=== PATIENT | male | born 1980 | race Caucasian/White ===

== ENCOUNTER 2016-03-16 16:58 | Inpatient (IN) | payer OTHER ==
[2016-03-16] MEDS ORDERED: IOPAMIDOL 300 (61%) 150 ML VIAL IV ONE (16:59)
[2016-03-16] MEDS ORDERED: SODIUM CHLORIDE 0.9% 2,000 ML ONE ×2 (18:46→20:44)
[2016-03-16] MEDS ORDERED: SODIUM CHLORIDE 0.9% 50 ML IV ONE (18:46)
[2016-03-16] MEDS ORDERED: ONDANSETRON 4 MG/2ML 2 ML VIAL ONE ×3 (18:46→21:14)
[2016-03-16] MEDS ORDERED: HYDROMORPHONE HCL 1 MG/ML SYRINGE ONE (18:47)
[2016-03-16] MEDS ORDERED: CEFTRIAXONE SODIUM 1 G VIAL ONE (18:47)
[2016-03-16] MEDS ORDERED: VANCOMYCIN HCL 2.5 G in SODIUM CHLORIDE 0.9% 500 ML IV ONE (19:00)
[2016-03-16 19:35] LABS: ABSOLUTE NEUTROPHIL COUNT 12.9 K/mm3 (1.8-7.7); BASO % 0.2 % (0.2-1.0); EOS % 0.1 % (0.9-2.9); HEMATOCRIT 43.6 % (32.0-52.0); HEMOGLOBIN 14.7 gm/l (14.0-18.0); IMM NEUT # 0.1 K/mm3 (0-0.2); IMM NEUT% 0.8 % (0-1); LYMPH # 1.7 (1.0-4.8); LYMPH % 10.4 % (15-45); MEAN CELL VOLUME 86.7 fl (80.0-94.0); MEAN CORPUSCULAR HEMOGLOBIN 29.2 pg (27.0-31.0); MEAN CORPUSCULAR HGB CONC 33.7 g/dl (33.0-37.0); MEAN PLATELET VOLUME 10.9 fl (7.4-10.4); MONO # 1.6 (0.0-0.8); MONO % 9.9 % (4-12); NEUT % 78.6 % (43-75); PLATELET COUNT 282 K/mm3 (130-400); RED CELL DISTRIBUTION WIDTH 12.8 % (11.5-14.5)
[2016-03-16 19:42] LABS: I-STAT CREATININE 0.6 mg/dL (0.6-1.3)
[2016-03-16 20:10] LABS: INR 1.09; PROTHROMBIN TIME 11.6 SECONDS (9.3-11.4)
--- NOTE | 2016-03-16 20:13 | CT ---
EXAMINATION: Contrast enhanced CT scan of the abdomen and pelvis. CLINICAL INDICATION: Scrotal abscess. COMPARISON: None TECHNIQUE: Oral contrast: None Following uneventful administration of 125 mL of Isovue 300, intravenously axial images were acquired from just above the domes of the diaphragm to the iliac crest. A CT scan of the pelvis was also obtained from the iliac crest to the initial tuberosities. Stacked axial, sagittal, and coronal images were reviewed. Findings: Abdomen CT: (Contrast-enhanced): The lung bases are clear and are without mass or pleural effusion. Liver exhibits diminished attenuation throughout compatible with fatty infiltration. There is also moderate focal diminished attenuation near the gallbladder fossa. No other discrete hepatic lesion is identified. Patient status post cholecystectomy. There is no evidence of biliary obstruction. The spleen size and attenuation are within normal limits. The pancreas is normal in size and contours. No inflammatory stranding is identified. The pancreatic duct is unremarkable. The adrenals are unremarkable. The kidneys are without mass or hydronephrosis. No nephrolithiasis is identified. The abdominal aorta unremarkable. There is no retroperitoneal adenopathy identified. The stomach is unremarkable. The visualized segments of small and large bowel are within normal limits. The osseous structures exhibit no displaced fracture. No lytic or blastic lesions are identified. Pelvic CT: (Contrast -enhanced): There is a right scrotal abscess. This extends the deep and at the cephalad aspect of the scrotum. There is extensive soft tissue gas in this distribution as well with moderate adjacent inflammatory stranding. T small focus of high attenuation noted deep and inferior. To do this region. This is uncertain if this reflects packing or bandage material. There is considerable swelling of the scrotal skin predominantly on the right. The testicle itself exhibits grossly unremarkable changes however the epididymis is exhibiting moderate enhancement into the right inguinal canal. The left inguinal distribution is unremarkable. The bladder contours are within normal limits. The distal ureters are normal. The prostate is not enlarged. Seminal vesicles are symmetric. There is no free fluid. There are lymph nodes in the distal external iliac distribution which exhibits short axis dimensions of greater than 1 cm. No disseminated adenopathy is identified however. The visualized segments of small and large bowel are within normal limits. The appendix is normal. No displaced fractures are identified. There are no gross osteolytic or blastic lesions. The remainder of the overlying soft tissues are within normal limits. IMPRESSION: 1. There is a right scrotal abscess with extensive soft tissue gas and considerable scrotal edema. There is also apparent epididymitis. Although this gas may reflect postsurgical changes, a gas producing infection may need to be considered. There is also apparent residual packing noted within the abscess cavity. Reactive lymph nodes are noted within the pelvis. 2. Fatty infiltration of the liver. 3. Low-attenuation changes near the gallbladder fossa which may reflect focal geographic fatty infiltration however a hemangioma may need to be considered. If warranted, hepatic ultrasound may be helpful. 4. Prior cholecystectomy. 5. Findings were discussed with Dr. Reece at 8:00 PM 03/16/2016
[2016-03-16 20:36] LABS: VENOUS BLOOD GAS BASE EXCESS -17.1 mmol/L (-2.0-2.0); VENOUS BLOOD GAS HCO3 9.1 mmol/L (22.0-27.0)
[2016-03-16] MEDS ORDERED: CLINDAMYCIN 900 MG PREMIX 50 ML IV ONE (20:44)
[2016-03-16] MEDS ORDERED: INSULIN REGULAR HUMAN (DOSE) 100 UNITS in SODIUM CHLORIDE 0.9% 99 ML IV PRN (20:50)
[2016-03-16] MEDS ORDERED: PROPOFOL 20 ML IV ONE ×2 (21:14→22:06)
[2016-03-16] MEDS ORDERED: FENTANYL 5 ML ONE ×2 (21:14→22:13)
[2016-03-16] MEDS ORDERED: MIDAZOLAM HCL 5 MG/5 ML VIAL ONE (21:14)
[2016-03-16] MEDS ORDERED: SUCCINYLCHOLINE CHL 20 MG/ML DOSE ONE (21:14)
[2016-03-16] MEDS ORDERED: LIDOCAINE 2% (PRES FREE) 5 ML VIAL ONE (21:14)
[2016-03-16] MEDS ORDERED: CEFAZOLIN SODIUM 1,000 MG VIAL ONE (21:31)
[2016-03-16] MEDS ORDERED: ONDANSETRON 4 MG/2ML 2 ML VIAL IV PRN (22:17)
[2016-03-16] MEDS ORDERED: HYDROMORPHONE HCL 1 MG/ML SYRINGE IV PRN (22:17)
[2016-03-16] MEDS ORDERED: FENTANYL 100 MCG/2 ML VIAL IV PRN (22:17)
[2016-03-16] MEDS ORDERED: PROMETHAZINE HCL 25 MG/ML VIAL IM PRN (22:17)
[2016-03-16] MEDS ORDERED: SODIUM CHLORIDE 0.9% 1,000 ML IV SCH (22:30)
[2016-03-16] MEDS ORDERED: CLINDAMYCIN 900 MG PREMIX 900 MG in Premix (D5W) 50 ml 1 EACH IV SCH (23:49)
[2016-03-16] MEDS ORDERED: MENTHOL/CETYLPYRD 1 EACH LOZENGE PO PRN (23:49)
[2016-03-16] MEDS ORDERED: ACETAMINOPHEN 325 MG TABLET PO PRN (23:49)
[2016-03-16] MEDS ORDERED: BLISTEX LIPSTICK 1 EACH TP PRN (23:49)
[2016-03-16] MEDS ORDERED: SODIUM CHLORIDE 0.9% 1,000 ML ONE (23:49)
[2016-03-17] MEDS ORDERED: INSULIN REGULAR HUMAN (DOSE) 100 UNITS in SODIUM CHLORIDE 0.9% 99 ML IV PRN (00:10)
[2016-03-17 00:24] VITALS: BMI 42.2
[2016-03-17] MEDS ORDERED: SODIUM CHLORIDE 0.9% 1,000 ML IV SCH (00:30)
[2016-03-17] MEDS ORDERED: PUMP TUBING ONE ×5 (01:31→21:52)
[2016-03-17] MEDS ORDERED: CLINDAMYCIN 900 MG PREMIX 50 ML IV ONE (01:32)
[2016-03-17] MEDS: SODIUM CHLORIDE 0.9% 1,000 ML IV SCH ×3 (01:35→20:03)
[2016-03-17] MEDS ORDERED: PNEUMOCOCCAL 23-VAL P-SAC VAC 0.5 ML VIAL IM V ONE (02:00)
[2016-03-17] MEDS ORDERED: FLU VACC 2016-17 (36MO-64Y)/PF 60 MCG/0.5 ML SYRINGE IM V ONE (02:00)
[2016-03-17] MEDS ORDERED: SODIUM CHLORIDE 0.9% 100 ML IV ONE (03:44)
[2016-03-17] MEDS: CLINDAMYCIN 900 MG PREMIX 900 MG in Premix (D5W) 50 ml 1 EACH IV SCH ×4 (03:56→21:58)
[2016-03-17] MEDS: HYDROMORPHONE HCL 1 MG/ML SYRINGE IV PRN ×3 (04:48→23:20)
[2016-03-17 05:39] LABS: ABSOLUTE NEUTROPHIL COUNT 12.5 K/mm3 (1.8-7.7); BASO % 0.2 % (0.2-1.0); HEMATOCRIT 36.5 % (32.0-52.0); HEMOGLOBIN 11.8 gm/l (14.0-18.0); IMM NEUT # 0.1 K/mm3 (0-0.2); IMM NEUT% 0.9 % (0-1); LYMPH # 1.9 (1.0-4.8); LYMPH % 11.7 % (15-45); MEAN CELL VOLUME 89.9 fl (80.0-94.0); MEAN CORPUSCULAR HEMOGLOBIN 29.1 pg (27.0-31.0); MEAN CORPUSCULAR HGB CONC 32.3 g/dl (33.0-37.0); MEAN PLATELET VOLUME 10.7 fl (7.4-10.4); MONO # 1.5 (0.0-0.8); MONO % 9.1 % (4-12); NEUT % 78.1 % (43-75); PLATELET COUNT 269 K/mm3 (130-400); RED CELL DISTRIBUTION WIDTH 13.2 % (11.5-14.5)
[2016-03-17 05:58] LABS: ALB/GLOB RATIO 0.8 (>1.0); ALBUMIN 2.9 gm/dL (3.5-5.7); CALCIUM 7.7 mg/dL (8.6-10.3); MAGNESIUM 1.7 mg/dL (1.9-2.7)
--- NOTE | 2016-03-17 06:57 | PDOC43 ---
- Subjective Chief Complaint: Loree's, DM II Patient reports ongoing discomfort from perineal abscess, drainage. He is breathing fine, no GI c/o. José in. Would like a drink of water (but is going back to the OR this am) - Objective Vital Signs Temperature 97.2 F 03/17/16 04:04 Pulse Rate 100 03/17/16 04:04 Respiratory Rate 16 03/17/16 05:00 Blood Pressure 141/76 03/17/16 04:04 O2 Saturation by Pulse Oximetry 99 03/17/16 04:04 Oxygen Delivery Method Nasal Cannula Oxygen Flow Rate 2 Vital Signs Last 12 Hours Temp Pulse Resp BP Pulse Ox 03/17/16 05:00 16 03/17/16 04:04 97.2 F 100 16 141/76 99 03/17/16 03:07 105 16 159/89 97 03/17/16 02:00 103 14 159/86 100 03/17/16 01:30 106 13 148/75 100 03/17/16 01:02 107 13 140/72 100 03/17/16 00:48 97.2 F 108 14 141/91 100 03/17/16 00:32 112 16 135/98 100 03/17/16 00:18 113 13 116/76 100 03/17/16 00:05 96.2 F 117 14 132/95 100 Intake and Output 03/15/16 03/16/16 03/17/16 23:59 23:59 23:59 Intake Total 3800 Output Total 2250 Balance 1550 Intake & Output 03/16/16 03/16/16 03/17/16 15:59 23:59 07:59 Intake Total 3800 Output Total 2250 Balance 1550 Weight 146.7 kg Intake: PO Intake 40 IV Fluids 1010 OR IV Fluid 2750 Output: José Output 1300 OR Urine 550 OR Estimated Blood Loss 400 General: Alert (more alert than last night.), Cooperative, Moderate Distress ( from discomfort) HEENT: Atraumatic Lungs: Clear to Auscultation Bilaterally Cardiovascular: Regular Rate and Rhythm Abdomen: Soft, Normal Bowel Sounds, Non-Distended Genitourinary: Other (exam deferred, going to surgery.) Extremities: No Edema Skin: Normal Color (improved, color in cheeks and extremities improved. Pulses good throughout, extrem warm.) Neurological: Normal Speech Psych/Mental Status: Other (sl more awake than last night, but uncomfortable.) Laboratory 03/17/16 05:15 03/17/16 05:15 03/17/16 03/17/16 03/17/16 06:04 05:15 05:03 RBC 4.06 L MCHC 32.3 L Estimated GFR 111 H POC Capillary Glucose 240 H 266 H Calcium 7.7 L Magnesium 1.7 L Albumin 2.9 L Globulin 3.7 H Albumin/Globulin Ratio 0.8 L 03/17/16 03/17/16 03/17/16 03:58 02:59 02:03 RBC MCHC Estimated GFR POC Capillary Glucose 251 H 241 H 258 H Calcium Magnesium Albumin Globulin Albumin/Globulin Ratio 03/17/16 03/17/16 01:01 00:10 RBC MCHC Estimated GFR POC Capillary Glucose 297 H 258 H Calcium Magnesium Albumin Globulin Albumin/Globulin Ratio Current Medications: Current meds reviewed in EMR. Active Medications Acetaminophen (Tylenol) 325 - 650 mg PO Q4H PRN PRN Reason: Mild Pain Or Temp > 101 F Benzocaine/Menthol (Cepacol) 1 each PO PRN PRN PRN Reason: Sore Throat Hydromorphone HCl (Dilaudid) 0.5 - 1 mg IV Q1H PRN PRN Reason: Pain (Severe/Breakthrough) Last Admin: 03/17/16 04:48 Dose: 1 mg Imipenem/Cilastatin Sodium 500 (mg/ NS 0.9% (MINI-BAG PLUS)) 100 mls @ 200 mls/ hr IV Q6H ENOCH Clindamycin HCl/Dextrose 900 (mg/ Premix (D5W) 50 ml) 50 mls @ 75 mls/hr IV Q6H ENOCH Last Admin: 03/17/16 03:56 Dose: 75 mls/hr Potassium Chloride/Dextrose/Sod Cl (D51/2ns With 20 Meq Kcl) 1,000 mls @ 125 mls/hr IV .Q8H ENOCH (not started yet, was to begin when BG<200) Sodium Chloride (Sodium Chloride 0.9%) 1,000 mls @ 250 mls/hr IV .Q4H ENOCH Stop: 03/17/16 08:29 Last Admin: 03/17/16 05:33 Dose: 250 mls/hr Insulin Human Regular 100 (units/ Sodium Chloride) 100 mls @ 1 mls/hr IV .PER PROTOCOL PRN; Protocol; 1 UNITS/HR PRN Reason: Hyperglycemia Ketorolac Tromethamine (Toradol) 30 mg IV Q6H PRN PRN Reason: Pain (Moderate) Stop: 03/19/16 23:48 Ondansetron HCl (Zofran) 4 mg IV Q4H PRN PRN Reason: Nausea/Vomiting Petrolatum/Paraffin/Mineral Oil (Blistex) 1 each TP PRN PRN PRN Reason: Dry and/or chapped lips Sodium Chloride (Normal Saline 10ml Flush) 10 - 50 ml IV PRN PRN PRN Reason: IV Flush Last Admin: 03/17/16 04:48 Dose: 10 ml - Problems: Assessment/Plan (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 BP good, urine output good s/p I&D 03/16, appreciate surgical care. Anticipating return to OR 03/17. On Primaxin, clindamycin. Culture with GPC clusters and chains, will add Vanco to cover possibility of MRSA. (2) Diabetes type 2, uncontrolled Qualifiers: Qualifier Code: (E11.8) Type 2 diabetes mellitus with unspecified complications Status: Acute Assessment/Plan: newly diagnosed, with DKA suggested; low pH, low bicarbonate, but currently fairly resistant to insulin drip, suggesting insulin resistance BG continue in the mid to upper 200s despite insulin IV. Change insulin drip to high. Received considerable fluids so far; A1c pending, will add C-peptide (to assess for insulin deficiency) (3) Morbid obesity Qualifiers: Qualifier Code: (E66.01) Morbid (severe) obesity due to excess calories Status: Chronic Assessment/Plan: Playing a role in development of DM, and Loree's. VTE Prophylaxis: Mechanical. Not candidate for pharmacologic tx, as he had considerable EBL with surgery, and will be going back today. Disposition: TBD Additional Comments: PUlmonary - good sats, on minimal O2 Cardiac - NSR, HR was tachy, improved to upper 90s after fluid GI - NPO for anticipate surgery, on IVF, anticipate going to a D5 1/2 with 20 mEq KCL when glucose < 200. Renal - Cr 0.6->0.8, José placed 03/16, Urine output 1300+550 ; no BM. Heme - Hb 14.7->11.8 due to blood loss, fluid corrections FEN - NPO for surgery. Mg 1.7 today, plan Mg IV supplement, electrolytes otherwise unrem Neuro - normal Endocrine - Pt appears to be having a DKA episode, but is likely insulin resistant (Type II) provoked by illness. Bicarb improved, check VBG ID - GPC on culture of wound, Primaxin, Clindamycin both started 03/16, added Vancomycin 03/17. Plan surgical recheck later today. Integ - normal except perineal wound, appreciate surgical care. Code status = full
--- NOTE | 2016-03-17 07:16 | PDOC43 ---
- Subjective Subjective: Reports Pain Tolerable, Denies Distention - Objective Vital Signs Temperature 97.2 F 03/17/16 04:04 Pulse Rate 100 03/17/16 04:04 Respiratory Rate 16 03/17/16 05:00 Blood Pressure 141/76 03/17/16 04:04 O2 Saturation by Pulse Oximetry 99 03/17/16 04:04 Oxygen Delivery Method Nasal Cannula Oxygen Flow Rate 2 Laboratory 03/17/16 05:15 03/17/16 05:15 03/17/16 03/17/16 03/17/16 07:00 06:04 05:15 RBC 4.06 L MCHC 32.3 L Estimated GFR 111 H POC Capillary Glucose 219 H 240 H Calcium 7.7 L Magnesium 1.7 L Albumin 2.9 L Globulin 3.7 H Albumin/Globulin Ratio 0.8 L 03/17/16 03/17/16 03/17/16 05:03 03:58 02:59 RBC MCHC Estimated GFR POC Capillary Glucose 266 H 251 H 241 H Calcium Magnesium Albumin Globulin Albumin/Globulin Ratio 03/17/16 03/17/16 03/17/16 02:03 01:01 00:10 RBC MCHC Estimated GFR POC Capillary Glucose 258 H 297 H 258 H Calcium Magnesium Albumin Globulin Albumin/Globulin Ratio Active Medication Orders Category Date Time Status Clindamycin 900 mg Premix [Cleocin-D5w 900 mg/50 ml] Med 03/17/16 04:00 Active 900 mg Premix (D5W) 50 ml 1 each IV Q6H D5 1/2NS with 20 mEq KCL [D51/2NS with 20 mEq KCL] 1, Med 03/17/16 03:00 Active 000 ml IV 125 mls/hr Insulin Regular Human (Dose) [Novolin R (Dose)] 100 Med 03/17/16 06:58 Ordered units Sodium Chloride 0.9% 99 ml IV .PER PROTOCOL Sodium Chloride 0.9% 1,000 ml Med 03/17/16 00:58 Active IV 250 mls/hr Intake and Output 03/16/16 03/17/16 03/18/16 06:59 06:59 06:59 Intake Total 3800 Output Total 2250 Balance 1550 General: Alert, Oriented x3 Abdomen: Soft, Non-Distended, Other (No spreading erythema) Wound: Erythema (Doesn't look to be spreading beyond the marked borders.) Psych/Mental Status: Normal Affect - Assessment/ Plan (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 Still acidotic but probably from DM. Second look today. May have [facility] take a look if available. (2) Diabetes type 2, uncontrolled Qualifiers: Diabetes mellitus complication status: with skin complications Diabetes mellitus long-term insulin use: without long-term use Qualifier Code: () Status: Acute Assessment/ Plan: Blood sugars better. Discussed with hospitalists. (3) Morbid obesity Qualifiers: Obesity type: due to excess calories Qualifier Code: (E66.01) Morbid ( severe) obesity due to excess calories Status: Chronic Assessment/ Plan: High risk for DVT, hold on Lovenox until after second debridement. Probable sleep apnea.
[2016-03-17] MEDS ORDERED: MAGNESIUM SULFATE 2 G/50 ML 2 G in Premix (Water) 50 ml 1 EACH IV ONE (07:28)
[2016-03-17] MEDS: INSULIN REGULAR HUMAN (DOSE) 100 UNITS in SODIUM CHLORIDE 0.9% 99 ML IV PRN ×2 (08:14→15:33)
[2016-03-17] MEDS: VANCOMYCIN HCL 2.5 G in SODIUM CHLORIDE 0.9% 500 ML IV SCH ×2 (08:22→19:54)
[2016-03-17] MEDS: D5 1/2NS with 20 mEq KCL 1,000 ML IV SCH ×3 (10:22→19:38)
--- NOTE | 2016-03-17 10:49 | HP ---
ADALID NOONAN [id number] DATE OF ADMISSION: March 16, 2016 CHIEF COMPLAINT: Scrotal pain. HISTORY OF PRESENT ILLNESS: This is a 35-year-old male who describes a two-week history of some pain in the right side of the scrotum and groin. He had a small abscess that he was able to squeeze and drain himself. Over the last four days it got significantly worse. He was seen in urgent care in [place] and the area was incised and drained. Despite that, it has gotten more swollen and red. He has had some chills. He had a CT scan that did show persistent abscess with soft tissue gas concerning for a necrotizing soft tissue infection. PAST MEDICAL HISTORY: Morbid obesity. PAST SURGICAL HISTORY: 1. Left knee surgery. 2. Cholecystectomy. CURRENT MEDICATIONS: 1. Bactrim which was just started yesterday. 2. Hydrocodone as needed. ALLERGIES: NONE KNOWN. FAMILY HISTORY: No diabetes in the family. Grandmother with breast cancer. Grandfather with colon cancer. SOCIAL HISTORY: He quit smoking two years ago. Rarely drinks alcohol. Denies drug use. REVIEW OF SYSTEMS: CONSTITUTIONAL: Chills. EYES: No complaints. EARS, NOSE, THROAT: No complaints. CARDIAC: No complaints. PULMONARY: No complaints. reports that he snores terribly at night. Probably has sleep apnea. GASTROINTESTINAL: No complaints. GENITOURINARY: No complaints. MUSCULOSKELETAL: No complaints. NEUROLOGIC: No complaints. ENDOCRINE: Just diagnosed with diabetes on his blood counts today. PSYCHIATRIC: No complaints. PHYSICAL EXAMINATION: VITAL SIGNS: Temperature 98.6. Pulse 103. Blood pressure 152/89. Respirations 17. GENERAL: In general, he is awake, alert, appears in no acute distress. HEENT: Head is atraumatic, normocephalic. Pupils are equal. Sclera is nonicteric. Oropharynx has a Mallampati class 4 airway. No exudate or erythema seen. NECK: Is large, supple with a keller. No lymphadenopathy is palpable. LUNGS: Clear to auscultation, normal respiratory effort. CARDIAC: Regular rhythm, mild tachycardia. No murmurs heard. ABDOMEN: Obese, soft, nondistended. Groin area reveals redness that extends across the midline at the mons into the right inguinal region down to below and lateral of the scrotum. The right side of the scrotum is larger. There is packing in place. I did not remove that. It does not appear to be a perirectal abscess. There is no obvious skin necrosis. EXTREMITIES: Are without cyanosis, clubbing or edema. NEUROLOGIC: He is alert and oriented. Sensation grossly intact at all extremities. PSYCHIATRIC: Shows no signs of anxiety or depression. Appears able to make informed medical decisions. LABORATORIES: White blood cell count 16.4, hemoglobin 14.7, platelets are 282. Prothrombin time 11.6. Sodium 131, potassium 4.2, chloride is 102, carbon dioxide is pending, BUN is 9, creatinine 0.6, glucose is 407. Venous pH is 7.2, CO2 of 10, base excess of -17. ASSESSMENT: 1. Possible necrotizing fasciitis of the right scrotum and groin. 2. Uncontrolled newly diagnosed diabetes mellitus. 3. Morbid obesity. 4. Probable sleep apnea. PLAN: I have recommended urgent surgical exploration. We talked about debridement of a significant amount of skin and subcutaneous tissues. I talked about possibly debriding the scrotum. We talked about possible orchiectomy. We talked about the life-threatening nature of this kind of disease. Depending on the findings, we may end up sending him to a tertiary care facility with more resources. At this point, I would recommend urgent exploration before transfer. He expressed understanding and is willing to proceed.
[2016-03-17 11:04] LABS: VENOUS BLOOD GAS BASE EXCESS -12.4 mmol/L (-2.0-2.0); VENOUS BLOOD GAS HCO3 13.4 mmol/L (22.0-27.0)
--- NOTE | 2016-03-17 12:45 | OP ---
Michael Carrion [id number] DATE: 03/16/2016 PREOPERATIVE DIAGNOSIS: Necrotizing soft tissue infection of the right scrotum and groin. POSTOPERATIVE DIAGNOSIS: Necrotizing soft tissue infection of the right scrotum and groin. PROCEDURE: Incision and debridement of skin and subcutaneous fat with exploration of the spermatic cord and scrotum. SURGEON: Jun Salas M.D. HEALTH SAFETY MANAGER: Lynnette. ANESTHESIA: Marx, General endotracheal. INDICATION: This is a 35-year-old male with progressive soft tissue infection of the right groin. This was debrided in Urgent Care, but has progressed. He has leukocytosis and acidosis. He is a newly diagnosed diabetic. He is hemodynamically stable, but taken to the operating room for debridement. DESCRIPTION: With informed consent he was taken to the operating room where he was laid supine on the operating room table. General endotracheal anesthetic was administered. The legs were placed in candy cane stirrups. The perianal, scrotal, and lower abdomen were prepped and draped. A José catheter was placed. The prior packing was removed. I dissected inferiorly incising the skin. I dissected anteriorly up into the right groin area to the medial aspect of the mons. I entered into an area of cloudy thin fluid. This was cultured. There was necrotizing tissue beneath this. I debrided a significant amount of necrotic tissue deep within the wound. This was more significant than the actual outside skin appearance. I debrided to the lateral aspect of the actual cord structures. I opened this up and found no significant pus up within the cord structures. We dissected the lateral aspect of the scrotal tissue. There was swelling, but no significant pus around the testicle. The necrosis did extend up into the mons pubis up and around the subcutaneous penis. I opened the skin and debrided tissue up into this area. A couple larger vessels were tied off with silk ties otherwise, there was generalized oozing and this was cauterized. I used a Pulsavac with some Ancef and washed and debrided the area. A small amount of oozing was present and I packed the wound open with some Kerlix soaked in the antibiotic solution. He was hemodynamically stable during the procedure, was extubated, and taken to the recovery room. We did see a blood loss of 400 mL in our canister, it did seem to be more than I thought, but we did have quite a bit of oozing during the case. We will take him to the intensive care unit for insulin drip and get his diabetes under control. I will consult with the hospitalist. We will probably reexplore tomorrow. Depending on how he looks clinically, we may consider transfer to tertiary care facility. JOB: [id number]
--- NOTE | 2016-03-17 12:48 | CONS ---
Michael Carrion [id number] DATE OF ADMISSION: 03/16/2016 Patient does not have a local physician, but requesting physician for consultation was Dr. Jun Salas. CHIEF COMPLAINT: Gangrene and assist with diabetes care. HISTORY OF PRESENT ILLNESS: The patient is a 35-year-old male who noted a small boil or spot on scrotum on Wednesday. It seemed to get worse, so he went to the Urgent Care on Wednesday and he underwent drainage. He went to get his packing removed, but with worsening redness, pain, and swelling he came to the emergency department today. He was noted to have a significant hyperglycemia. He was not previously diagnosed as a diabetic, but has not had a lot of medical care recently. PAST MEDICAL HISTORY: Negative for any significant hospitalizations. PAST SURGICAL HISTORY: Include cholecystectomy and meniscus surgery. ALLERGIES: No known drug allergies. MEDICATIONS: None. SOCIAL HISTORY: He works in the [employer] at [employer]. He is . He has one son. He quit smoking two years ago. No alcohol. No bapt[employer] affiliation. No travel outside of the [place]. They have a Pitbull mix dog. FAMILY HISTORY: Both parents are in their 60's and are generally healthy. REVIEW OF SYSTEMS: Eyes, ears, nose, throat have been okay. His breathing is fine although, he can snore some, but he is not noted to have any apnea at night. He does not have any history of heart disease or heart complaints. No stomach complaints except for occasional reflux. No urinary complaints other than polyuria noted recently. He has had some dry mouth more recently. No history of skin complaints otherwise. No history of strokes or seizures. No history of bone or joint complaints other than the meniscal surgery in the past. PHYSICAL EXAMINATION: GENERAL: A slightly sleepy male still with some discomfort despite pain medicine. He answers appropriately. VITAL SIGNS: Temperature 96.2, pulse 113, blood pressure 116/76, respirations 13, 100% saturation on 12 liters, 319 pounds. He received 4000 liters in the emergency department, 1750 in the operating room, and then blood loss was estimated at 400. HEENT: Head is normocephalic, atraumatic. Eyes are unremarkable. Ears normal bilaterally. Nose is normal. Mouth is unremarkable. NECK: Supple, no masses. LUNGS: Generally clear to auscultation bilaterally. HEART: Regular rate and rhythm, tachycardic. ABDOMEN: Obese, nontender, nondistended. Bowel sounds are quiet. No rebound, no guarding, no masses. No significant scars are noted. GENITOURINARY: Dressings not removed, exam per surgery. Yellow urine draining from José which is fairly pale. EXTREMITIES: Without edema. Perfusion appears to be adequate, slightly pale throughout, but extremities are warmth with appropriate capillary. NEURO: Patient answers appropriately, sleepy, and uncomfortable. LABORATORY: White count 16.4, hemoglobin 14.7, platelets 282, INR 1.06. Venous pH 7.197, base access -17, pCO2 23.9, bicarbonate 9.1. Sodium 131, potassium 4.2, chloride 102, BUN 9, creatinine 0.6, glucose 407, A1c is pending. Ionized calcium 1.16, glucose initially 407, then 292, then 262, and 258. DIAGNOSTICS: CT shows right sided scrotal abscess, extensive soft tissue gas and edema, possible associated epididymitis, packing in the abscessed cavity, reactive lymph nodes, fatty changes of the liver, prior cholecystectomy, possible hemangioma versus focal fatty infiltrate in gallbladder fossa. ASSESSMENT AND PLAN: 1. Fornes gangrene initially drained as an outpatient now status post incision and drainage per surgery. Appreciate surgical care. Will be continued on Primaxin and clindamycin as per surgery and considering for return to operating room for further incision and drainage in the morning. Continue nothing by mouth. Will maintain on intravenous fluids. 2. Newly diagnosed diabetes mellitus type 2 with low bicarbonate and pH suggesting some degree of diabetic ketoacidosis. Plan intravenous insulin. Capillary blood glucoses hourly. Intravenous fluids and await A1c. If concern for type 1 diabetes could consider testing for C-peptide. 3. Venous thrombosis prophylaxis mechanical. 4. Morbid obesity. Will monitor for desaturations and consider CPAP if needed. We will continue to follow with your while he is here. JOB: [id number]
[2016-03-17] MEDS ORDERED: FENTANYL 5 ML ONE (17:13)
[2016-03-17] MEDS ORDERED: PROPOFOL 40 ML IV ONE (17:13)
[2016-03-17] MEDS ORDERED: LIDOCAINE 2% (PRES FREE) 5 ML VIAL ONE (17:13)
[2016-03-17] MEDS ORDERED: SUCCINYLCHOLINE CHL 20 MG/ML DOSE ONE ×10 (17:13→17:15)
[2016-03-17] MEDS ORDERED: KETAMINE HCL UD SYRINGE 100 MG/2 ML IV ONE (17:16)
[2016-03-17] MEDS ORDERED: LACTATED RINGERS 1,000 ML ONE (17:24)
[2016-03-17] MEDS ORDERED: MIDAZOLAM HCL 5 MG/5 ML VIAL ONE (17:39)
[2016-03-17] MEDS ORDERED: SODIUM CHLORIDE 0.9% FLUSH 10 ML ONE ×2 (17:50→18:22)
[2016-03-17] MEDS ORDERED: EPHEDRINE SULFATE UD SYR 25 MG 25 MG/5 ML SYRINGE IV ONE (18:03)
[2016-03-17] MEDS ORDERED: CEFAZOLIN SODIUM 1,000 MG VIAL ONE (18:21)
[2016-03-17] MEDS ORDERED: INSULIN REGULAR HUMAN (DOSE) 100 UNITS/1 ML SUB-Q PRN ×2 (19:41→20:16)
[2016-03-17] MEDS ORDERED: INSULIN ASPART (DOSE) 100 UNITS/1 ML SUB-Q PRN (19:41)
[2016-03-17] MEDS ORDERED: INSULIN GLARGINE (DOSE) 100 UNITS/ML UNIT SUB-Q SCH ×2 (19:45→20:45)
[2016-03-17] MEDS ORDERED: SODIUM CHLORIDE 0.9% 50 ML IV ONE (21:51)
[2016-03-17 23:24] LABS: A1C-GLYCOHEMOGLOBIN 1.8 g/dl; HEMOGLOBIN-GLYCO 13.4 g/dl
[2016-03-18] MEDS: ONDANSETRON 4 MG/2ML 2 ML VIAL IV PRN ×2 (00:26→09:04)
[2016-03-18] MEDS: IMIPENEM IV SCH ×4 (00:48→19:55)
[2016-03-18] MEDS: NS 0.9% IV SCH ×4 (00:48→19:55)
[2016-03-18] MEDS: CILASTATIN SODIUM IV SCH ×4 (00:48→19:55)
[2016-03-18] MEDS: HYDROMORPHONE HCL 1 MG/ML SYRINGE IV PRN ×3 (01:47→13:42)
[2016-03-18] MEDS: KETOROLAC TROMETHAMINE 30 MG/ML 1 ML VIAL IV PRN ×2 (01:47→09:08)
[2016-03-18 03:33] LABS: CALCIUM 8.8 mg/dL (8.6-10.3)
[2016-03-18] MEDS: CLINDAMYCIN 900 MG PREMIX 900 MG in Premix (D5W) 50 ml 1 EACH IV SCH ×3 (03:44→16:08)
[2016-03-18] MEDS: SODIUM CHLORIDE 0.9% 1,000 ML IV SCH (05:02)
[2016-03-18 06:19] LABS: ABSOLUTE NEUTROPHIL COUNT 7.6 K/mm3 (1.8-7.7); BASO % 0.2 % (0.2-1.0); EOS # 0.2 (0.0-0.5); EOS % 1.4 % (0.9-2.9); HEMATOCRIT 31.6 % (32.0-52.0); HEMOGLOBIN 10.4 gm/l (14.0-18.0); IMM NEUT # 0.1 K/mm3 (0-0.2); IMM NEUT% 0.5 % (0-1); LYMPH # 1.7 (1.0-4.8); LYMPH % 16.3 % (15-45); MEAN CELL VOLUME 89.3 fl (80.0-94.0); MEAN CORPUSCULAR HEMOGLOBIN 29.4 pg (27.0-31.0); MEAN CORPUSCULAR HGB CONC 32.9 g/dl (33.0-37.0); MEAN PLATELET VOLUME 10.7 fl (7.4-10.4); MONO % 9.1 % (4-12); NEUT % 72.5 % (43-75); PLATELET COUNT 237 K/mm3 (130-400); RED CELL DISTRIBUTION WIDTH 13.6 % (11.5-14.5)
--- NOTE | 2016-03-18 06:20 | OP ---
ADALID NOONAN [id number] DATE OF OPERATION: March 17, 2016 PREOPERATIVE DIAGNOSIS: Loree's gangrene. POSTOPERATIVE DIAGNOSIS: Loree's gangrene. PROCEDURE: SECOND LOOK DEBRIDEMENT OF LOREE'S GANGRENE. SURGEON: Jun Salas M.D. ANESTHESIA: Ganesh Smyth C.R.N.A., spinal anesthesia. INDICATIONS: This is a 35-year-old male who has had a large necrotizing fasciitis of the right groin area that was debrided last night. He was just found to be diabetic with blood sugars in the 400s. He is taken back for a second look operation. DESCRIPTION: With informed consent, he had a spinal anesthetic administered. He was then placed in high lithotomy candy cane stirrups. Packing was removed. The area was prepped and draped in sterile fashion. The tissues had some new granulation tissue. There was very minimal black necrotic tissue. I debrided a small amount. I looked for undrained pockets of purulence and did not find any. The spermatic cord, the base of the penis and the scrotum appeared okay with minimal debridement. A couple of areas were cauterized. The wound was vigorously irrigated with an antibiotic containing saline. The wound was repacked with sterile gauze. He tolerated this well and was taken to the recovery room in stable condition. We will check in to our options as far as wound care. This would be best served with a wound VAC to facilitate closure. We will put him back in the intensive care unit with the assistance of the hospitalist caring for his diabetes.
[2016-03-18 06:35] LABS: ALB/GLOB RATIO 0.7 (>1.0); ALBUMIN 2.6 gm/dL (3.5-5.7); CALCIUM 7.9 mg/dL (8.6-10.3); MAGNESIUM 1.5 mg/dL (1.9-2.7)
[2016-03-18] MEDS: PANTOPRAZOLE 40 MG TABLET DR PO SCH (09:51)
[2016-03-18] MEDS: ENOXAPARIN SODIUM 40 MG/0.4 ML SYRINGE SUB-Q SCH (09:51)
[2016-03-18] MEDS ORDERED: INSULIN GLARGINE (DOSE) 100 UNITS/ML UNIT SUB-Q SCH ×2 (10:12→21:00)
--- NOTE | 2016-03-18 10:26 | PDOC43 ---
- Subjective Chief Complaint: Loree's, DM II RN reports pt doing ok. Getting diabetic teaching. Some stomach upset, received Protonix. STEPS coming to see him for wound vac if possible. Pt reports feeling better, was able to eat today. - Objective Vital Signs Temperature 98 F 03/18/16 08:00 Pulse Rate 89 03/18/16 08:00 Respiratory Rate 12 03/18/16 08:00 Blood Pressure 137/85 03/18/16 08:00 O2 Saturation by Pulse Oximetry 98 03/18/16 08:00 Oxygen Delivery Method Room Air Oxygen Flow Rate 0 Vital Signs Last 12 Hours Temp Pulse Resp BP Pulse Ox 03/18/16 08:00 98 F 89 12 137/85 98 03/18/16 04:00 92 11 125/61 98 03/18/16 01:53 13 03/18/16 01:45 102 13 109/53 96 03/17/16 23:45 98 14 119/64 98 03/17/16 22:45 97.3 F 100 14 123/56 97 03/17/16 21:45 98 14 128/64 97 Intake and Output 03/16/16 03/17/16 03/18/16 23:59 23:59 23:59 Intake Total 8835 2508 Output Total 3920 1900 Balance 4915 608 General: Alert, Cooperative, No Acute Distress HEENT: Atraumatic Lungs: Clear to Auscultation Bilaterally, Normal Air Movement Cardiovascular: Regular Rate and Rhythm Abdomen: Soft, Normal Bowel Sounds, Non-Distended Extremities: No Edema Skin: Other (Dressing not examined/per surgery) Neurological: Normal Speech Psych/Mental Status: Normal Affect, Normal Mood Laboratory 03/18/16 05:30 03/18/16 05:30 03/18/16 03/17/16 03/17/16 05:30 19:40 19:15 RBC 3.54 L MCHC 32.9 L VBG pH VBG O2 Saturation VBG Base Excess Mixed VBG pCO2 Mixed VBG pO2 Mixed VBG HCO3 BUN 5 L Estimated GFR 154 H POC Capillary Glucose 200 H 176 H Calcium 7.9 L Magnesium 1.5 L Total Protein 6.1 L Albumin 2.6 L Albumin/Globulin Ratio 0.7 L 03/17/16 03/17/16 03/17/16 18:29 16:52 15:12 RBC MCHC VBG pH VBG O2 Saturation VBG Base Excess Mixed VBG pCO2 Mixed VBG pO2 Mixed VBG HCO3 BUN Estimated GFR POC Capillary Glucose 176 H 216 H 208 H Calcium Magnesium Total Protein Albumin Albumin/Globulin Ratio 03/17/16 03/17/16 03/17/16 14:07 13:00 12:08 RBC MCHC VBG pH VBG O2 Saturation VBG Base Excess Mixed VBG pCO2 Mixed VBG pO2 Mixed VBG HCO3 BUN Estimated GFR POC Capillary Glucose 224 H 198 H 204 H Calcium Magnesium Total Protein Albumin Albumin/Globulin Ratio 03/17/16 03/17/16 03/17/16 11:08 10:50 10:15 RBC MCHC VBG pH 7.259 L VBG O2 Saturation 98.0 H VBG Base Excess -12.4 L Mixed VBG pCO2 30.7 L Mixed VBG pO2 114.1 H Mixed VBG HCO3 13.4 L BUN Estimated GFR POC Capillary Glucose 203 H 200 H Calcium Magnesium Total Protein Albumin Albumin/Globulin Ratio Current Medications: Current meds reviewed in EMR. Active Medications Acetaminophen (Tylenol) 325 - 650 mg PO Q4H PRN PRN Reason: Mild Pain Or Temp > 101 F Benzocaine/Menthol (Cepacol) 1 each PO PRN PRN PRN Reason: Sore Throat Enoxaparin Sodium (Lovenox) 40 mg SUB-Q Q24H [facility] Hydromorphone HCl (Dilaudid) 0.5 - 1 mg IV Q1H PRN PRN Reason: Pain (Severe/Breakthrough) Last Admin: 03/18/16 09:08 Dose: 0.5 mg Hydromorphone HCl (Dilaudid) 2 - 4 mg PO Q4H PRN PRN Reason: Pain Imipenem/Cilastatin Sodium 500 (mg/ NS 0.9% (MINI-BAG PLUS)) 100 mls @ 200 mls/ hr IV Q6H [facility] Last Admin: 03/18/16 07:01 Dose: 200 mls/hr Clindamycin HCl/Dextrose 900 (mg/ Premix (D5W) 50 ml) 50 mls @ 75 mls/hr IV Q6H [facility] Last Admin: 03/18/16 03:44 Dose: 75 mls/hr Vancomycin HCl 2.5 g/ Sodium (Chloride) 550 mls @ 225 mls/hr IV Q12H [facility] PRN Reason: Protocol Last Admin: 03/17/16 19:54 Dose: 225 mls/hr Sodium Chloride (Sodium Chloride 0.9%) 1,000 mls @ 125 mls/hr IV .Q8H [facility] Last Admin: 03/18/16 05:02 Dose: Not Given Insulin Glargine (Lantus (Dose)) 40 units SUB-Q Q24H [facility] Last Admin: 03/17/16 20:51 Dose: 40 units Insulin Human Regular (Novolin R (Dose)) 0 units SUB-Q ACBEDTIME PRN; Protocol PRN Reason: Blood Sugar > Ketorolac Tromethamine (Toradol) 30 mg IV Q6H PRN PRN Reason: Pain (Moderate) Stop: 03/19/16 23:48 Last Admin: 03/18/16 09:08 Dose: 30 mg Ondansetron HCl (Zofran) 4 mg IV Q4H PRN PRN Reason: Nausea/Vomiting Last Admin: 03/18/16 09:04 Dose: 4 mg Pantoprazole Sodium (Protonix) 40 mg PO Q24H [facility] Petrolatum/Paraffin/Mineral Oil (Blistex) 1 each TP PRN PRN PRN Reason: Dry and/or chapped lips Sodium Chloride (Normal Saline 10ml Flush) 10 - 50 ml IV PRN PRN PRN Reason: IV Flush Last Admin: 03/17/16 08:23 Dose: 20 ml Sodium Chloride (Normal Saline 10ml Flush) 10 ml IV Q8HR [facility] Last Admin: 03/18/16 01:00 Dose: 10 ml - Problems: Assessment/Plan (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 BP remain good, urine output continues good s/p I&D 03/16 and 03/17; appreciate surgical care. On Primaxin, clindamycin, Vanco to cover possibility of MRSA. Cultures pending but beta Strep is currently identified; will adjust abx once culture final. STEPS coming to see about wound vac/wound management (2) Diabetes type 2, uncontrolled Qualifiers: Diabetes mellitus complication status: with skin complications Diabetes mellitus correction insulin use: without emt intermediate use Status: Acute Assessment/Plan: newly diagnosed, with DKA suggested; low pH, low bicarbonate, but currently fairly resistant to insulin drip, I suspect patient is a Insulin resistant patient who exceeded his pancreatic capacity, acting as a combined Type I/II. BG continue in the 170-230 range, will anticipate adjusting insulin further- increase Lantus Bicarb 10 on admit -> 18 today. A1c 14.6, waiting on C-peptide (to assess for insulin deficiency) - still pending on 03/18 (3) Morbid obesity Qualifiers: Obesity type: due to excess calories Qualifier Code: (E66.01) Morbid ( severe) obesity due to excess calories Status: Chronic Assessment/Plan: Playing an important role in development of DM, and Loree's. Appreciate carton forming machine operator input VTE Prophylaxis: now on enoxaparin Disposition: TBD Additional Comments: PUlmonary - good sats, on RA Cardiac - NSR, HR 90s GI - Diabetic diet, did get Protonix for GI upset, now better. Renal - Cr 0.6 , José placed 03/16, continue due to protecting wound area from urine Heme - Hb 14.7->10.4 due to blood loss, fluid corrections FEN - diabetic diet, calcium sl low, associated with low albumin; Mg sl low; will replace Neuro - normal Endocrine - Pt appears to be having a DKA episode, but is likely insulin resistant (Type II) provoked by illness (now improved). Bicarb improved, pH improved ID - GPC (beta hemolytic Strep) on culture of wound, Primaxin, Clindamycin both started 03/16, added Vancomycin 03/17. Plan revision of antibiotics Integ - normal except perineal wound, appreciate surgical care/wound care. Code status = full
[2016-03-18] MEDS ORDERED: SODIUM CHLORIDE 0.9% IV SCH (10:30)
[2016-03-18] MEDS ORDERED: VANCOMYCIN HCL IV SCH (10:30)
[2016-03-18] MEDS ORDERED: LIDOCAINE 4% ONE (13:39)
[2016-03-18] MEDS: Magnesium Oxide 400 MG TABLET PO SCH ×2 (14:06→22:22)
[2016-03-18] MEDS: INSULIN REGULAR HUMAN (DOSE) 100 UNITS/1 ML SUB-Q PRN ×3 (14:08→22:36)
[2016-03-18] MEDS: VANCOMYCIN HCL 2.5 G in SODIUM CHLORIDE 0.9% 500 ML IV SCH (14:52)
[2016-03-18] MEDS ORDERED: PNEUMOC 13-VAL CONJ-DIP CRM/PF 0.5 ML SYRINGE IM V ONE (15:24)
[2016-03-18] MEDS: HYDROMORPHONE HCL 2 MG TABLET PO PRN (18:57)
[2016-03-18] MEDS ORDERED: PUMP TUBING ONE (19:16)
[2016-03-18] MEDS: SODIUM CHLORIDE 0.9% 50 ML IV PRN (19:55)
[2016-03-19] MEDS: HYDROMORPHONE HCL 2 MG TABLET PO PRN ×5 (00:30→23:25)
[2016-03-19] MEDS: CILASTATIN SODIUM IV SCH ×2 (00:31→07:27)
[2016-03-19] MEDS: IMIPENEM IV SCH ×2 (00:31→07:27)
[2016-03-19] MEDS: NS 0.9% IV SCH ×2 (00:31→07:27)
[2016-03-19] MEDS: SODIUM CHLORIDE 0.9% 50 ML IV PRN ×2 (02:10→07:27)
[2016-03-19 06:43] LABS: ABSOLUTE NEUTROPHIL COUNT 4.8 K/mm3 (1.8-7.7); BASO % 0.3 % (0.2-1.0); EOS # 0.2 (0.0-0.5); EOS % 2.6 % (0.9-2.9); HEMOGLOBIN 10.5 gm/l (14.0-18.0); IMM NEUT% 0.5 % (0-1); LYMPH # 1.8 (1.0-4.8); LYMPH % 23.4 % (15-45); MEAN CELL VOLUME 87.1 fl (80.0-94.0); MEAN CORPUSCULAR HEMOGLOBIN 29.5 pg (27.0-31.0); MEAN CORPUSCULAR HGB CONC 33.9 g/dl (33.0-37.0); MEAN PLATELET VOLUME 10.1 fl (7.4-10.4); MONO # 0.8 (0.0-0.8); MONO % 10.1 % (4-12); NEUT % 63.1 % (43-75); PLATELET COUNT 254 K/mm3 (130-400); RED CELL DISTRIBUTION WIDTH 13.2 % (11.5-14.5)
[2016-03-19 07:02] LABS: ALB/GLOB RATIO 0.7 (>1.0); ALBUMIN 2.6 gm/dL (3.5-5.7); MAGNESIUM 1.5 mg/dL (1.9-2.7)
[2016-03-19] MEDS ORDERED: LORAZEPAM 2 MG/ML 1ML SDV IV PRN (08:46)
[2016-03-19] MEDS ORDERED: LIDOCAINE 1% (PRES FREE) 5 ML VIAL PF PRN (08:46)
[2016-03-19] MEDS: PANTOPRAZOLE 40 MG TABLET DR PO SCH (09:32)
[2016-03-19] MEDS: Magnesium Oxide 400 MG TABLET PO SCH ×2 (09:32→21:10)
[2016-03-19] MEDS: ENOXAPARIN SODIUM 40 MG/0.4 ML SYRINGE SUB-Q SCH (09:32)
[2016-03-19] MEDS: HYDROMORPHONE HCL 1 MG/ML SYRINGE IV PRN ×2 (09:43→10:29)
[2016-03-19] MEDS: POTASSIUM CHLORIDE 20 MEQ TAB.PRT.SR PO SCH ×2 (10:52→21:11)
[2016-03-19] MEDS ORDERED: MAGNESIUM SULFATE 2 G/50 ML 2 G in Premix (Water) 50 ml 1 EACH IV ONE (11:00)
--- NOTE | 2016-03-19 11:54 | PDOC43 ---
- Subjective Subjective: Reports Pain Tolerable, Reports Other (Tired) - Objective Vital Signs Temperature 98.8 F 03/19/16 08:00 Pulse Rate 90 03/19/16 08:00 Respiratory Rate 16 03/19/16 08:00 Blood Pressure 118/70 03/19/16 08:00 O2 Saturation by Pulse Oximetry 96 03/19/16 08:00 Oxygen Delivery Method Room Air Oxygen Flow Rate 0 Laboratory 03/19/16 06:00 03/19/16 06:00 03/19/16 03/18/16 03/18/16 06:00 22:08 18:41 RBC 3.56 L BUN 3 L Estimated GFR 154 H POC Capillary Glucose 284 H 197 H Calcium 8.0 L Magnesium 1.5 L Albumin 2.6 L Globulin 3.8 H Albumin/Globulin Ratio 0.7 L 03/18/16 11:52 RBC BUN Estimated GFR POC Capillary Glucose 228 H Calcium Magnesium Albumin Globulin Albumin/Globulin Ratio Active Medication Orders Category Date Time Status Enoxaparin Sodium [Lovenox] Med 03/18/16 09:00 Active 40 mg SUB-Q Q24H Ertapenem Sodium [Invanz] 1 g Med 03/19/16 13:00 Active Ns 0.9% (Mini-Bag Plus) [Mini-Bag Plus (Ns)] 50 ml IV Q24H Hydromorphone [Dilaudid] Med 03/18/16 08:34 Active 2 - 4 mg PO Q4H PRN Insulin Glargine (Dose) [Lantus (Dose)] Med 03/18/16 21:00 Active 50 units SUB-Q Q24H Insulin Regular Human (Dose) [Novolin R (Dose)] Med 03/18/16 10:12 Active See Protocol SUB-Q ACBEDTIME PRN Magnesium Oxide Med 03/18/16 10:30 Active 400 mg PO BID Magnesium Sulfate 2 G/50 ml [Magnesium Sulfate] 2 g Med 03/19/16 11:00 Active Premix (Water) 50 ml 1 each IV X1 Pantoprazole Sodium [Protonix] Med 03/18/16 09:45 Active 40 mg PO Q24H Potassium Chloride [K-Dur] Med 03/19/16 10:30 Active 20 meq PO BID Sodium Chloride 0.9% 1,000 ml Med 03/17/16 19:45 Hold IV 125 mls/hr Sodium Chloride 0.9% 50 ml Med 03/18/16 19:24 Active IV PRN Sodium Chloride 0.9% Flush [Normal Saline 10ml Flush] Med 03/17/16 09:00 Active 10 ml IV Q8HR Intake and Output 03/18/16 03/19/16 03/20/16 06:59 06:59 06:59 Intake Total 7543 4694 120 Output Total 3570 2250 Balance 3973 2444 120 General: Alert, Oriented x3 Abdomen: Soft Wound: Dressing Clean/Dry/Intact - Assessment/ Plan (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 Change tomorow to get on MWF schedule. Additional week of antibiotics (ertapenem). Take out hernandez tomorow if vac dressing can maintain seal. (2) Diabetes type 2, uncontrolled Qualifiers: Diabetes mellitus complication status: with skin complications Diabetes mellitus long term care pharmacist insulin use: without long term care pharmacist use Status: Acute Assessment/ Plan: Blood sugars better. Discussed with hospitalists. (3) Morbid obesity Qualifiers: Obesity type: due to excess calories Qualifier Code: (E66.01) Morbid ( severe) obesity due to excess calories Status: Chronic Assessment/ Plan: High risk for DVT, hold on Lovenox until after second debridement. Probable sleep apnea.
[2016-03-19] MEDS ORDERED: ERTAPENEM SODIUM IV SCH (12:00)
[2016-03-19] MEDS ORDERED: SODIUM CHLORIDE NS ADD VANTAGE IV SCH (12:00)
--- NOTE | 2016-03-19 12:04 | PDOC43 ---
- Subjective Chief Complaint: Loree's, DM II Patient reported to be healing well so far. No new c/o. Yesterday, had spoken with ID, had suggested stopping Vanco if no Staph, and stopping clindamycin. Could consider revision of Primaxin to Ertepenem to simplify administration, consider for 1 week duration. At this point would not switch to just penicillin/cephalosporin for Strep Group B. Wound care - trial of wound vac. - Objective Vital Signs Temperature 98.8 F 03/19/16 08:00 Pulse Rate 90 03/19/16 08:00 Respiratory Rate 16 03/19/16 08:00 Blood Pressure 118/70 03/19/16 08:00 O2 Saturation by Pulse Oximetry 96 03/19/16 08:00 Oxygen Delivery Method Room Air Oxygen Flow Rate 0 Vital Signs Last 12 Hours Temp Pulse Resp BP Pulse Ox 03/19/16 08:00 98.8 F 90 16 118/70 96 03/19/16 03:25 98.6 F 91 18 119/70 95 03/19/16 02:19 16 Intake and Output 03/17/16 03/18/16 03/19/16 23:59 23:59 23:59 Intake Total 8835 5670 1652 Output Total 3920 2150 2000 Balance 4915 3520 -348 General: Alert, Cooperative HEENT: Atraumatic Lungs: Clear to Auscultation Bilaterally, Normal Air Movement Cardiovascular: Regular Rate and Rhythm Abdomen: Soft, Normal Bowel Sounds, Non-Distended, No Tenderness, No Involuntary Guarding Skin: Normal Color Neurological: Normal Speech Psych/Mental Status: Normal Affect Laboratory 03/19/16 06:00 03/19/16 06:00 03/19/16 03/18/16 03/18/16 06:00 22:08 18:41 RBC 3.56 L BUN 3 L Estimated GFR 154 H POC Capillary Glucose 284 H 197 H C-Peptide Calcium 8.0 L Magnesium 1.5 L Albumin 2.6 L Globulin 3.8 H Albumin/Globulin Ratio 0.7 L 03/18/16 03/17/16 11:52 08:00 RBC BUN Estimated GFR POC Capillary Glucose 228 H C-Peptide 0.5 L Calcium Magnesium Albumin Globulin Albumin/Globulin Ratio Current Medications: Current meds reviewed in EMR. Active Medications Acetaminophen (Tylenol) 325 - 650 mg PO Q4H PRN PRN Reason: Mild Pain Or Temp > 101 F Benzocaine/Menthol (Cepacol) 1 each PO PRN PRN PRN Reason: Sore Throat Enoxaparin Sodium (Lovenox) 40 mg SUB-Q Q24H [facility] Last Admin: 03/19/16 09:32 Dose: 40 mg Hydromorphone HCl (Dilaudid) 0.5 - 1 mg IV Q1H PRN PRN Reason: Pain (Severe/Breakthrough) Last Admin: 03/19/16 10:29 Dose: 1 mg Hydromorphone HCl (Dilaudid) 2 - 4 mg PO Q4H PRN PRN Reason: Pain Last Admin: 03/19/16 10:30 Dose: 2 mg Sodium Chloride (Sodium Chloride 0.9%) 1,000 mls @ 125 mls/hr IV .Q8H [facility] Last Admin: 03/18/16 05:02 Dose: Not Given Sodium Chloride (Sodium Chloride 0.9%) 50 mls @ 25 mls/hr IV PRN PRN PRN Reason: Flush Last Admin: 03/19/16 07:27 Dose: 25 mls/hr Ertapenem 1 g/ NS 0.9% (MINI- (BAG PLUS)) 50 mls @ 100 mls/hr IV Q24H [facility] Magnesium Sulfate 2 g/ Sterile (Water) 50 mls @ 25 mls/hr IV X1 ONE Stop: 03/19/16 12:59 Last Admin: 03/19/16 10:52 Dose: 25 mls/hr Insulin Glargine (Lantus (Dose)) 50 units SUB-Q Q24H [facility] Last Admin: 03/18/16 22:15 Dose: 50 units Insulin Human Regular (Novolin R (Dose)) 0 units SUB-Q ACBEDTIME PRN; Protocol PRN Reason: Blood Sugar > Last Admin: 03/18/16 22:36 Dose: 3 units Ketorolac Tromethamine (Toradol) 30 mg IV Q6H PRN PRN Reason: Pain (Moderate) Stop: 03/19/16 23:48 Last Admin: 03/18/16 09:08 Dose: 30 mg Magnesium Oxide (Magnesium Oxide) 400 mg PO BID [facility] Last Admin: 03/19/16 09:32 Dose: 400 mg Ondansetron HCl (Zofran) 4 mg IV Q4H PRN PRN Reason: Nausea/Vomiting Last Admin: 03/18/16 09:04 Dose: 4 mg Pantoprazole Sodium (Protonix) 40 mg PO Q24H [facility] Last Admin: 03/19/16 09:32 Dose: 40 mg Petrolatum/Paraffin/Mineral Oil (Blistex) 1 each TP PRN PRN PRN Reason: Dry and/or chapped lips Potassium Chloride (K-Dur) 20 meq PO BID [facility] Last Admin: 03/19/16 10:52 Dose: 20 meq Sodium Chloride (Normal Saline 10ml Flush) 10 - 50 ml IV PRN PRN PRN Reason: IV Flush Last Admin: 03/19/16 10:52 Dose: 20 ml Sodium Chloride (Normal Saline 10ml Flush) 10 ml IV Q8HR [facility] Last Admin: 03/19/16 07:27 Dose: 10 ml - Problems: Assessment/Plan (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 with sepsis (elevated WBC, HR); lactate remained normal. BP remain good, urine output continues good s/p I&D 03/16 and 03/17; appreciate surgical care. On Primaxin for Group B Strep is currently identified; but only will simplify to ertepenem. STEPS coming to see about wound vac/wound management (2) Diabetes type 2, uncontrolled Qualifiers: Diabetes mellitus complication status: with skin complications Diabetes mellitus terminal system operator insulin use: without mcfp use Status: Acute Assessment/Plan: newly diagnosed, with DKA suggested; low pH, low bicarbonate, but currently fairly resistant to insulin drip, With low C-peptide, appears to be an insulin deficient with some degree of insulin resistance. 197-228, BG still elevated. A1c 14.6, will monitor with stopping the D5 now (3) Morbid obesity Qualifiers: Obesity type: due to excess calories Qualifier Code: (E66.01) Morbid ( severe) obesity due to excess calories Status: Chronic Assessment/Plan: Playing an important role in development of DM, and Loree's. Appreciate ammonia box operator input VTE Prophylaxis: now on enoxaparin Disposition: TBD Additional Comments: PUlmonary - good sats, on RA Cardiac - NSR, HR 90s GI - Diabetic diet, did get Protonix for GI upset, now better. Renal - Cr stable at 0.6 , José placed 03/16, continue due to protecting wound area from urine Heme - Hb 14.7->10.4 due to blood loss, fluid corrections FEN - diabetic diet, calcium sl low, associated with low albumin; Mg sl low; will replace Neuro - normal Endocrine - Pt appears to be having a DKA episode, and with low Cpeptide, would suggest insulin deficient (Type I) , but with insulin resistant (Type II) provoked by illness (now improved). Bicarb improved, pH improved ID - Group B Strep on culture of wound, Primaxin started 03/16, Plan revision of antibiotics to ertepenem Integ - normal except perineal wound, appreciate surgical care/wound care. Code status = full
[2016-03-19] MEDS: ERTAPENEM SODIUM 1 G in NS 0.9% (MINI-BAG PLUS) 50 ML IV SCH (13:00)
[2016-03-19] MEDS: INSULIN GLARGINE (DOSE) 100 UNITS/ML UNIT SUB-Q SCH (13:02)
[2016-03-19] MEDS: INSULIN REGULAR HUMAN (DOSE) 100 UNITS/1 ML SUB-Q PRN (13:03)
[2016-03-19] MEDS: ONDANSETRON 4 MG/2ML 2 ML VIAL IV PRN (16:53)
[2016-03-20 05:56] LABS: BASO % 0.3 % (0.2-1.0); EOS # 0.3 (0.0-0.5); EOS % 3.5 % (0.9-2.9); HEMATOCRIT 32.4 % (32.0-52.0); HEMOGLOBIN 10.8 gm/l (14.0-18.0); IMM NEUT% 0.4 % (0-1); LYMPH % 27.9 % (15-45); MEAN CELL VOLUME 86.6 fl (80.0-94.0); MEAN CORPUSCULAR HEMOGLOBIN 28.9 pg (27.0-31.0); MEAN CORPUSCULAR HGB CONC 33.3 g/dl (33.0-37.0); MEAN PLATELET VOLUME 9.6 fl (7.4-10.4); MONO # 0.8 (0.0-0.8); MONO % 10.8 % (4-12); NEUT % 57.1 % (43-75); PLATELET COUNT 291 K/mm3 (130-400); RED CELL DISTRIBUTION WIDTH 13.2 % (11.5-14.5)
[2016-03-20 06:21] LABS: ALB/GLOB RATIO 0.7 (>1.0); ALBUMIN 2.7 gm/dL (3.5-5.7); CALCIUM 8.2 mg/dL (8.6-10.3); MAGNESIUM 1.7 mg/dL (1.9-2.7)
--- NOTE | 2016-03-20 07:54 | PDOC43 ---
- Subjective Subjective: Reports Pain Tolerable, Denies Nausea - Objective Vital Signs Temperature 98.5 F 03/20/16 07:17 Pulse Rate 78 03/20/16 07:17 Respiratory Rate 16 03/20/16 07:17 Blood Pressure 129/55 03/20/16 07:17 O2 Saturation by Pulse Oximetry 94 03/20/16 07:17 Oxygen Delivery Method Room Air Oxygen Flow Rate 0 Laboratory 03/20/16 05:30 03/20/16 05:30 03/20/16 03/19/16 03/19/16 05:30 21:09 16:40 RBC 3.74 L BUN 2 L Estimated GFR 154 H POC Capillary Glucose 166 H 140 H Calcium 8.2 L Magnesium 1.7 L AST 47 H Albumin 2.7 L Globulin 3.9 H Albumin/Globulin Ratio 0.7 L 03/19/16 12:46 RBC BUN Estimated GFR POC Capillary Glucose 224 H Calcium Magnesium AST Albumin Globulin Albumin/Globulin Ratio Active Medication Orders Category Date Time Status Enoxaparin Sodium [Lovenox] Med 03/18/16 09:00 Active 40 mg SUB-Q Q24H Ertapenem Sodium [Invanz] 1 g Med 03/19/16 13:00 Active Ns 0.9% (Mini-Bag Plus) [Mini-Bag Plus (Ns)] 50 ml IV Q24H Hydromorphone [Dilaudid] Med 03/18/16 08:34 Active 2 - 4 mg PO Q4H PRN Insulin Glargine (Dose) [Lantus (Dose)] Med 03/19/16 12:02 Active 60 units SUB-Q Q24H Insulin Regular Human (Dose) [Novolin R (Dose)] Med 03/19/16 12:02 Active See Protocol SUB-Q ACBEDTIME PRN Magnesium Oxide Med 03/18/16 10:30 Active 400 mg PO BID Pantoprazole Sodium [Protonix] Med 03/18/16 09:45 Active 40 mg PO Q24H Potassium Chloride [K-Dur] Med 03/19/16 10:30 Active 20 meq PO BID Sodium Chloride 0.9% 50 ml Med 03/18/16 19:24 Active IV PRN Sodium Chloride 0.9% Flush [Normal Saline 10ml Flush] Med 03/17/16 09:00 Active 10 ml IV Q8HR Intake and Output 03/19/16 03/20/16 03/21/16 06:59 06:59 06:59 Intake Total 4607 1220 Output Total 2250 4100 Balance 2444 -2880 General: Alert, Oriented x3 Abdomen: Soft Wound: Dressing Clean/Dry/Intact - Assessment/ Plan (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 Change today to get on MWF schedule. Additional week of antibiotics (ertapenem). Take out hernandez today. (2) Diabetes type 2, uncontrolled Qualifiers: Diabetes mellitus complication status: with skin complications Diabetes mellitus laborer marine terminal insulin use: without laborer marine terminal use Status: Acute Assessment/ Plan: Blood sugars better. Discussed with hospitalists. (3) Morbid obesity Qualifiers: Obesity type: due to excess calories Qualifier Code: (E66.01) Morbid ( severe) obesity due to excess calories Status: Chronic Assessment/ Plan: High risk for DVT, On Lovenox. Probable sleep apnea.
[2016-03-20] MEDS: POTASSIUM CHLORIDE 20 MEQ TAB.PRT.SR PO SCH ×2 (09:09→21:50)
[2016-03-20] MEDS: Magnesium Oxide 400 MG TABLET PO SCH ×2 (09:09→21:49)
[2016-03-20] MEDS: PANTOPRAZOLE 40 MG TABLET DR PO SCH (09:10)
[2016-03-20] MEDS: ENOXAPARIN SODIUM 40 MG/0.4 ML SYRINGE SUB-Q SCH (09:12)
[2016-03-20] MEDS: HYDROMORPHONE HCL 2 MG TABLET PO PRN ×3 (10:20→21:50)
[2016-03-20] MEDS ORDERED: LIDOCAINE 4% ONE (10:57)
--- NOTE | 2016-03-20 10:58 | PDOC43 ---
- Subjective Chief Complaint: Loree's/necotizing fasciitis, DM II Patient reports feeling pretty good, tolerating PO ok. Has been testing BG, hasn 't injected insulin yet. Wound vac going ok. - Objective Vital Signs Temperature 98.5 F 03/20/16 07:17 Pulse Rate 78 03/20/16 07:17 Respiratory Rate 16 03/20/16 07:50 Blood Pressure 129/55 03/20/16 07:17 O2 Saturation by Pulse Oximetry 94 03/20/16 07:17 Oxygen Delivery Method Room Air Oxygen Flow Rate 0 Vital Signs Last 12 Hours Temp Pulse Resp BP Pulse Ox 03/20/16 07:50 16 03/20/16 07:17 98.5 F 78 16 129/55 94 03/20/16 04:08 99.0 F 77 16 123/84 93 03/19/16 23:25 99.4 F 85 18 124/78 94 Intake and Output 03/18/16 03/19/16 03/20/16 23:59 23:59 23:59 Intake Total 5670 2052 700 Output Total 2150 3800 2300 Balance 3520 -1748 -1600 General: Alert, Cooperative, No Acute Distress HEENT: Atraumatic Lungs: Clear to Auscultation Bilaterally, Normal Air Movement Cardiovascular: Regular Rate and Rhythm Abdomen: Soft, Normal Bowel Sounds, Non-Distended Extremities: No Edema, No Tenderness Skin: Normal Color Neurological: Normal Speech Psych/Mental Status: Normal Affect, Normal Mood Laboratory 03/20/16 05:30 03/20/16 05:30 03/20/16 03/20/16 03/19/16 09:08 05:30 21:09 RBC 3.74 L BUN 2 L Estimated GFR 154 H POC Capillary Glucose 125 H 166 H Calcium 8.2 L Magnesium 1.7 L AST 47 H Albumin 2.7 L Globulin 3.9 H Albumin/Globulin Ratio 0.7 L 03/19/16 03/19/16 16:40 12:46 RBC BUN Estimated GFR POC Capillary Glucose 140 H 224 H Calcium Magnesium AST Albumin Globulin Albumin/Globulin Ratio wound culture - final - Strep agalactiae Blood culture negative. Current Medications: Current meds reviewed in EMR. Active Medications Acetaminophen (Tylenol) 325 - 650 mg PO Q4H PRN PRN Reason: Mild Pain Or Temp > 101 F Last Admin: 03/20/16 04:21 Dose: 650 mg Benzocaine/Menthol (Cepacol) 1 each PO PRN PRN PRN Reason: Sore Throat Enoxaparin Sodium (Lovenox) 40 mg SUB-Q Q24H [facility] Last Admin: 03/20/16 09:12 Dose: 40 mg Hydromorphone HCl (Dilaudid) 0.5 - 1 mg IV Q1H PRN PRN Reason: Pain (Severe/Breakthrough) Last Admin: 03/19/16 10:29 Dose: 1 mg Hydromorphone HCl (Dilaudid) 2 - 4 mg PO Q4H PRN PRN Reason: Pain Last Admin: 03/20/16 10:20 Dose: 4 mg Sodium Chloride (Sodium Chloride 0.9%) 50 mls @ 25 mls/hr IV PRN PRN PRN Reason: Flush Last Admin: 03/19/16 07:27 Dose: 25 mls/hr Ertapenem 1 g/ NS 0.9% (MINI- (BAG PLUS)) 50 mls @ 100 mls/hr IV Q24H [facility] Last Admin: 03/19/16 13:00 Dose: 100 mls/hr Insulin Glargine (Lantus (Dose)) 60 units SUB-Q Q24H [facility] Last Admin: 03/19/16 13:02 Dose: 60 units Insulin Human Regular (Novolin R (Dose)) 0 units SUB-Q ACBEDTIME PRN; Protocol PRN Reason: Blood Sugar > Last Admin: 03/19/16 13:03 Dose: 8 units Magnesium Oxide (Magnesium Oxide) 400 mg PO BID [facility] Last Admin: 03/20/16 09:09 Dose: 400 mg Ondansetron HCl (Zofran) 4 mg IV Q4H PRN PRN Reason: Nausea/Vomiting Last Admin: 03/19/16 16:53 Dose: 4 mg Pantoprazole Sodium (Protonix) 40 mg PO Q24H [facility] Last Admin: 03/20/16 09:10 Dose: 40 mg Petrolatum/Paraffin/Mineral Oil (Blistex) 1 each TP PRN PRN PRN Reason: Dry and/or chapped lips Potassium Chloride (K-Dur) 20 meq PO BID [facility] Last Admin: 03/20/16 09:09 Dose: 20 meq Sodium Chloride (Normal Saline 10ml Flush) 10 - 50 ml IV PRN PRN PRN Reason: IV Flush Last Admin: 03/19/16 16:54 Dose: 10 ml Sodium Chloride (Normal Saline 10ml Flush) 10 ml IV Q8HR [facility] Last Admin: 03/20/16 09:09 Dose: 10 ml - Problems: Assessment/Plan (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 with sepsis (elevated WBC, HR); lactate remained normal. BP remain good, urine output continues good s/p I&D 03/16 and 03/17; appreciate surgical care. On ertepenem for Group B Strep is currently identified; but concern for polymicrobial infection, would not simplify abx further STEPS for wound vac/wound management (2) Diabetes type 2, uncontrolled Qualifiers: Diabetes mellitus complication status: with skin complications Diabetes mellitus retirement insulin use: without intermediate designer use Status: Acute Assessment/Plan: newly diagnosed, with DKA suggested; low pH, low bicarbonate, but currently fairly resistant to insulin drip, With low C-peptide, appears to be an insulin deficient with some degree of insulin resistance. 197-228, BG still elevated. A1c 14.6, Lantus adjusted yest, BG 125 today. Giving handout from [employer] (3) Morbid obesity Qualifiers: Obesity type: due to excess calories Qualifier Code: (E66.01) Morbid ( severe) obesity due to excess calories Status: Chronic Assessment/Plan: Playing an important role in development of DM, and Loree's. Appreciate heating fixture tender input VTE Prophylaxis: now on enoxaparin Disposition: TBD, hope to DC to home with wound care and STEPS follow up. Additional Comments: PUlmonary - good sats, on RA Cardiac - NSR, HR 90s GI - Diabetic diet, did get Protonix for GI upset, now better. Renal - Cr stable at 0.6 , José placed 03/16, continue due to protecting wound area from urine Heme - Hb 14.7->10.8 due to blood loss, fluid corrections; has been stable FEN - diabetic diet, calcium sl low, associated with low albumin; Mg sl low; will replace Neuro - normal Endocrine - Pt appears to be having a DKA episode, and with low C-peptide, would suggest insulin deficient (Type I) , but with insulin resistant (Type II) provoked by illness (now improving). BG now much better. ID - Group B Strep on culture of wound, now on ertepenem Integ - normal except perineal wound, appreciate surgical care/wound care. Code status = full
[2016-03-20] MEDS: FLUCONAZOLE 100 MG TABLET PO SCH (12:29)
[2016-03-20] MEDS ORDERED: SODIUM CHLORIDE 0.9% FLUSH 10 ML ONE (12:41)
[2016-03-20] MEDS ORDERED: PUMP TUBING ONE (12:44)
[2016-03-20] MEDS: INSULIN GLARGINE (DOSE) 100 UNITS/ML UNIT SUB-Q SCH (12:48)
[2016-03-20] MEDS: INSULIN REGULAR HUMAN (DOSE) 100 UNITS/1 ML SUB-Q PRN ×2 (12:53→21:58)
[2016-03-20] MEDS: ERTAPENEM SODIUM 1 G in NS 0.9% (MINI-BAG PLUS) 50 ML IV SCH (13:05)
--- NOTE | 2016-03-20 13:26 | SURGPATH ---
[facility] [address] [place] [id number] Patient Name: ADALID NOONAN MR#: [id number] : 1980 Gender: M Specimen #: [id number] Collected: 03/16/2016 Received: 03/19/2016 Reported: 03/20/2016 Submitting Phys: SHIN LIPSCOMB Copy To Phys: [facility] Clinical History / Pre-Operative Diagnosis: SCROTAL ABSCESS, FASCITIS Specimen Source / Surgical Procedure Performed: SCROTUM Interpretation: SCROTUM, BIOPSY: - SOFT TISSUE NECROSIS AND ACUTE INFLAMMATION CONSISTENT WITH ABSCESS Electronically Signed Out Diogo Dyer M.D. Gross Description: The specimen is received in a formalin filled container labeled with the patient's name. An irregular, lobular excision of soft, focally hemorrhagic, yellow-cotto, fibroconnective and fatty soft tissue is 4.0 x 1.5 x 1 cm. Three pharmaceutical representative cross sections are submitted in one cassette. Surinder Pina, PGregory. Microscopic Description: A slide contains fibrofatty tissue with a dense neutrophilic infiltrate, fat necrosis and reactive changes. 1: [id number] L02.818
--- NOTE | 2016-03-21 08:24 | PDOC43 ---
- Subjective Chief Complaint: Loree's/necotizing fasciitis, DM - with DKA - appearing insulin deficient and insulin resistant Patient reports doing ok. Some pain, irritation associated with incision site. Was started on diflucan yesterday for poss candidal yeast inf. Did give himself a shot of insulin earlier, no problems. - Objective Vital Signs Temperature 98.0 F 03/21/16 06:06 Pulse Rate 81 03/21/16 06:06 Respiratory Rate 16 03/21/16 06:06 Blood Pressure 123/82 03/21/16 06:06 O2 Saturation by Pulse Oximetry 95 03/21/16 06:06 Oxygen Delivery Method Room Air Oxygen Flow Rate 0 Vital Signs Last 12 Hours Temp Pulse Resp BP Pulse Ox 03/21/16 06:06 98.0 F 81 16 123/82 95 03/21/16 05:15 99.0 F 82 16 134/83 94 03/21/16 01:17 18 03/21/16 00:00 98.8 F 88 18 114/77 95 Intake and Output 03/19/16 03/20/16 03/21/16 23:59 23:59 23:59 Intake Total 2 2823 590 Output Total 3800 2925 Balance -1748 -102 590 General: Alert, Cooperative, No Acute Distress HEENT: Atraumatic Lungs: Clear to Auscultation Bilaterally, Normal Air Movement Cardiovascular: Regular Rate and Rhythm Abdomen: Soft, Normal Bowel Sounds, Non-Distended Wound: Other (wound vac on. Area around wound with some dusky erythema - more suggestive of irritation vs candidal changes, not cellulitic, not indurated) Neurological: Normal Speech Psych/Mental Status: Normal Affect, Normal Mood Laboratory 03/20/16 05:30 03/20/16 05:30 03/20/16 03/20/16 03/20/16 21:52 18:00 12:33 POC Capillary Glucose 203 H 129 H 259 H 03/20/16 09:08 POC Capillary Glucose 125 H Current Medications: Current meds reviewed in EMR. Active Medications Acetaminophen (Tylenol) 325 - 650 mg PO Q4H PRN PRN Reason: Mild Pain Or Temp > 101 F Last Admin: 03/20/16 04:21 Dose: 650 mg Benzocaine/Menthol (Cepacol) 1 each PO PRN PRN PRN Reason: Sore Throat Enoxaparin Sodium (Lovenox) 40 mg SUB-Q Q24H [facility] Last Admin: 03/20/16 09:12 Dose: 40 mg Fluconazole (Diflucan) 200 mg PO DAILY [facility] Last Admin: 03/20/16 12:29 Dose: 200 mg Hydromorphone HCl (Dilaudid) 0.5 - 1 mg IV Q1H PRN PRN Reason: Pain (Severe/Breakthrough) Last Admin: 03/19/16 10:29 Dose: 1 mg Hydromorphone HCl (Dilaudid) 2 - 4 mg PO Q4H PRN PRN Reason: Pain Last Admin: 03/20/16 21:50 Dose: 2 mg Sodium Chloride (Sodium Chloride 0.9%) 50 mls @ 25 mls/hr IV PRN PRN PRN Reason: Flush Last Admin: 03/19/16 07:27 Dose: 25 mls/hr Ertapenem 1 g/ NS 0.9% (MINI- (BAG PLUS)) 50 mls @ 100 mls/hr IV Q24H [facility] Last Admin: 03/20/16 13:05 Dose: 100 mls/hr Insulin Glargine (Lantus (Dose)) 60 units SUB-Q Q24H [facility] Last Admin: 03/20/16 12:48 Dose: 60 units Insulin Human Regular (Novolin R (Dose)) 0 units SUB-Q ACBEDTIME PRN; Protocol PRN Reason: Blood Sugar > Last Admin: 03/20/16 21:58 Dose: 2 units Magnesium Oxide (Magnesium Oxide) 400 mg PO BID [facility] Last Admin: 03/20/16 21:49 Dose: 400 mg Pantoprazole Sodium (Protonix) 40 mg PO Q24H [facility] Last Admin: 03/20/16 09:10 Dose: 40 mg Petrolatum/Paraffin/Mineral Oil (Blistex) 1 each TP PRN PRN PRN Reason: Dry and/or chapped lips Potassium Chloride (K-Dur) 20 meq PO BID [facility] Last Admin: 03/20/16 21:50 Dose: 20 meq Sodium Chloride (Normal Saline 10ml Flush) 10 - 50 ml IV PRN PRN PRN Reason: IV Flush Last Admin: 03/20/16 14:01 Dose: 10 ml Sodium Chloride (Normal Saline 10ml Flush) 10 ml IV Q8HR [facility] Last Admin: 03/21/16 00:34 Dose: 10 ml - Problems: Assessment/Plan (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 with sepsis on presentation (elevated WBC, HR); lactate remained normal. s/p I&D 03/16 and 03/17; appreciate surgical care. On ertepenem for Group B Strep is currently identified; but concern for polymicrobial infection,at this time will not simplify abx further STEPS for wound vac/wound management; (2) Diabetes type 2, uncontrolled Qualifiers: Diabetes mellitus complication status: with skin complications Diabetes mellitus fci insulin use: without intermediate frame tender use Status: Acute Assessment/Plan: Patient appears to be Insulin deficient (type I) with some degree of insulin resistance (Type II) newly diagnosed, with DKA on admit. A1c 14.6, BG fluctuating, 125-259 Gave handouts from [employer], appreciate electric operator and diabetes education (3) Morbid obesity Qualifiers: Obesity type: due to excess calories Qualifier Code: (E66.01) Morbid ( severe) obesity due to excess calories Status: Chronic Assessment/Plan: Playing an important role in development of DM, and Loree's. Appreciate electric operator input VTE Prophylaxis: now on enoxaparin Disposition: TBD, hope to DC to home with wound care and STEPS follow up.
[2016-03-21] MEDS: POTASSIUM CHLORIDE 20 MEQ TAB.PRT.SR PO SCH ×2 (09:17→21:26)
[2016-03-21] MEDS: FLUCONAZOLE 100 MG TABLET PO SCH (09:17)
[2016-03-21] MEDS: Magnesium Oxide 400 MG TABLET PO SCH ×2 (09:17→21:26)
[2016-03-21] MEDS: PANTOPRAZOLE 40 MG TABLET DR PO SCH (09:17)
[2016-03-21] MEDS: ENOXAPARIN SODIUM 40 MG/0.4 ML SYRINGE SUB-Q SCH (09:17)
[2016-03-21] MEDS: HYDROMORPHONE HCL 2 MG TABLET PO PRN (10:58)
[2016-03-21] MEDS ORDERED: SODIUM CHLORIDE 0.9% FLUSH 10 ML ONE (11:18)
[2016-03-21] MEDS ORDERED: IV START KIT ONE (11:18)
--- NOTE | 2016-03-21 11:25 | PDOC43 ---
- Subjective Subjective: Reports Pain Tolerable, Reports Bowel Movement, Denies Nausea - Objective Vital Signs Temperature 98.0 F 03/21/16 06:06 Pulse Rate 81 03/21/16 06:06 Respiratory Rate 16 03/21/16 06:06 Blood Pressure 123/82 03/21/16 06:06 O2 Saturation by Pulse Oximetry 95 03/21/16 06:06 Oxygen Delivery Method Room Air Oxygen Flow Rate 0 Laboratory 03/20/16 05:30 03/20/16 05:30 03/21/16 03/20/16 03/20/16 09:24 21:52 18:00 POC Capillary Glucose 148 H 203 H 129 H 03/20/16 12:33 POC Capillary Glucose 259 H Active Medication Orders Category Date Time Status Enoxaparin Sodium [Lovenox] Med 03/18/16 09:00 Active 40 mg SUB-Q Q24H Ertapenem Sodium [Invanz] 1 g Med 03/19/16 13:00 Active Ns 0.9% (Mini-Bag Plus) [Mini-Bag Plus (Ns)] 50 ml IV Q24H Fluconazole [Diflucan] Med 03/20/16 11:30 Active 200 mg PO DAILY Hydromorphone [Dilaudid] Med 03/18/16 08:34 Active 2 - 4 mg PO Q4H PRN Insulin Glargine (Dose) [Lantus (Dose)] Med 03/19/16 12:02 Active 60 units SUB-Q Q24H Insulin Regular Human (Dose) [Novolin R (Dose)] Med 03/19/16 12:02 Active See Protocol SUB-Q ACBEDTIME PRN Magnesium Oxide Med 03/18/16 10:30 Active 400 mg PO BID Pantoprazole Sodium [Protonix] Med 03/18/16 09:45 Active 40 mg PO Q24H Potassium Chloride [K-Dur] Med 03/19/16 10:30 Active 20 meq PO BID Sodium Chloride 0.9% 50 ml Med 03/18/16 19:24 Active IV PRN Sodium Chloride 0.9% Flush [Normal Saline 10ml Flush] Med 03/17/16 09:00 Active 10 ml IV Q8HR Intake and Output 03/20/16 03/21/16 03/22/16 06:59 06:59 06:59 Intake Total 1220 2713 Output Total 4100 625 Balance -2880 2088 General: Alert, Oriented x3 Abdomen: Soft, Non-Distended Wound: Dressing Clean/Dry/Intact, No Erythema - Assessment/ Plan (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 Change on MWF schedule. Additional week of antibiotics (ertapenem) . Maybe home if wound looks OK on Wednesday. (2) Diabetes type 2, uncontrolled Qualifiers: Diabetes mellitus complication status: with skin complications Diabetes mellitus terminal gauger supervisor insulin use: without senior living use Status: Acute Assessment/ Plan: Blood sugars better. Discussed with hospitalists. (3) Morbid obesity Qualifiers: Obesity type: due to excess calories Qualifier Code: (E66.01) Morbid ( severe) obesity due to excess calories Status: Chronic Assessment/ Plan: High risk for DVT, On Lovenox. Probable sleep apnea.
[2016-03-21] MEDS ORDERED: PUMP TUBING ONE (12:24)
[2016-03-21] MEDS: ERTAPENEM SODIUM 1 G in NS 0.9% (MINI-BAG PLUS) 50 ML IV SCH (12:30)
[2016-03-21] MEDS: SODIUM CHLORIDE 0.9% 50 ML IV PRN (12:31)
[2016-03-21] MEDS: INSULIN GLARGINE (DOSE) 100 UNITS/ML UNIT SUB-Q SCH (12:32)
[2016-03-22] MEDS: HYDROMORPHONE HCL 2 MG TABLET PO PRN (00:01)
[2016-03-22 06:21] LABS: CALCIUM 8.5 mg/dL (8.6-10.3)
[2016-03-22] MEDS ORDERED: POTASSIUM CHLORIDE 20 MEQ TAB.PRT.SR PO ONE (06:56)
[2016-03-22] MEDS: ENOXAPARIN SODIUM 40 MG/0.4 ML SYRINGE SUB-Q SCH (08:48)
[2016-03-22] MEDS: POTASSIUM CHLORIDE 20 MEQ TAB.PRT.SR PO SCH ×2 (08:49→20:03)
[2016-03-22] MEDS: PANTOPRAZOLE 40 MG TABLET DR PO SCH (08:49)
[2016-03-22] MEDS: Magnesium Oxide 400 MG TABLET PO SCH ×2 (08:49→20:03)
[2016-03-22] MEDS: FLUCONAZOLE 100 MG TABLET PO SCH (08:49)
--- NOTE | 2016-03-22 09:01 | PDOC43 ---
- Subjective S: Minimal pain, tolerating regular (diabetic) diet. O: VSS, adequate UOP Physical Exam: General/Constitutional: Vitals documented above, comfortable in NAD Psych: A&O x 3, normal judgment and insight. Recent and remote memory intact. Mood and affect normal. Eyes: Pupils equal, no scleral icterus Ears, Nose, Mouth, Throat: gross hearing intact Neck: Supple Heart: RRR, no LE edema Lungs: Equal rise and fall of chest wall, non-labored breathing, no audible wheezes Neuro: Gross sensation intact Abdomen: Soft, obese, NT/ND, no guarding. : WV with good seal in RIGHT groin. SS output in canister. No surrounding erythema. Labs: See below A/P: 35yo M with Fourniers Gangrene/NSTI s/p I&D on 03/16/16. Sepsis appears resolved. Wound Cx with GBS and Blood Cx negative. Continue Ertapenem. Plan for WV change tomorrow (please call me to evaluate wound when vac down). Will coordinate for home wound vac with MWF changes in [facility]. If coordinated, can d/c on 7 days of PO Levaquin after W[place] change tomorrow. Ahmet Garcia MD General Surgeon - Objective Vital Signs Temperature 98.2 F 03/22/16 07:28 Pulse Rate 77 03/22/16 07:28 Respiratory Rate 16 03/22/16 07:28 Blood Pressure 122/82 03/22/16 07:28 O2 Saturation by Pulse Oximetry 97 03/22/16 07:28 Oxygen Delivery Method Room Air Oxygen Flow Rate 0 Laboratory 03/20/16 05:30 03/22/16 05:10 03/22/16 03/22/16 03/21/16 08:51 05:10 21:28 BUN 5 L Estimated GFR 129 H POC Capillary Glucose 133 H 151 H Calcium 8.5 L 03/21/16 03/21/16 03/21/16 19:18 15:26 12:22 BUN Estimated GFR POC Capillary Glucose 165 H 148 H 272 H Calcium 03/21/16 09:24 BUN Estimated GFR POC Capillary Glucose 148 H Calcium Active Medication Orders Category Date Time Status Enoxaparin Sodium [Lovenox] Med 03/18/16 09:00 Active 40 mg SUB-Q Q24H Ertapenem Sodium [Invanz] 1 g Med 03/19/16 13:00 Active Ns 0.9% (Mini-Bag Plus) [Mini-Bag Plus (Ns)] 50 ml IV Q24H Fluconazole [Diflucan] Med 03/20/16 11:30 Active 200 mg PO DAILY Insulin Glargine (Dose) [Lantus (Dose)] Med 03/19/16 12:02 Active 60 units SUB-Q Q24H Insulin Regular Human (Dose) [Novolin R (Dose)] Med 03/19/16 12:02 Active See Protocol SUB-Q ACBEDTIME PRN Magnesium Oxide Med 03/18/16 10:30 Active 400 mg PO BID Oxycodone HCl/Acetaminophen [Percocet 5/325] Med 03/22/16 08:23 Active 1 tab PO Q3H PRN Pantoprazole Sodium [Protonix] Med 03/18/16 09:45 Active 40 mg PO Q24H Potassium Chloride [K-Dur] Med 03/19/16 10:30 Active 20 meq PO BID Sodium Chloride 0.9% 50 ml Med 03/18/16 19:24 Active IV PRN Sodium Chloride 0.9% Flush [Normal Saline 10ml Flush] Med 03/17/16 09:00 Active 10 ml IV Q8HR Intake and Output 03/20/16 03/21/16 03/22/16 23:59 23:59 23:59 Intake Total 2823 1190 500 Output Total 2925 118 Balance -102 1190 -125
--- NOTE | 2016-03-22 10:24 | PDOC43 ---
- Subjective Chief Complaint: Loree's/necotizing fasciitis, DM - with DKA - appearing insulin deficient and insulin resistant No new complaints. Questions about having vision exam. - Objective Vital Signs Temperature 98.2 F 03/22/16 07:28 Pulse Rate 77 03/22/16 07:28 Respiratory Rate 16 03/22/16 07:28 Blood Pressure 122/82 03/22/16 07:28 O2 Saturation by Pulse Oximetry 97 03/22/16 07:28 Oxygen Delivery Method Room Air Oxygen Flow Rate 0 Intake and Output 03/21/16 03/22/16 03/23/16 06:59 06:59 06:59 Intake Total 2713 1100 Output Total 625 625 Balance 2088 475 General: Alert, Oriented x3, Cooperative, No Acute Distress HEENT: Mucous membr. moist/pink Lungs: Clear to Auscultation Bilaterally Cardiovascular: Regular Rate and Rhythm Abdomen: Soft, Normal Bowel Sounds, No Tenderness, No Masses Extremities: Normal Pulses, No Edema Wound: Dressing Clean/Dry/Intact (wound vac in right groin) Neurological: Normal Speech Psych/Mental Status: Normal Mood Laboratory 03/20/16 05:30 03/22/16 05:10 03/22/16 03/22/16 03/21/16 08:51 05:10 21:28 BUN 5 L Estimated GFR 129 H POC Capillary Glucose 133 H 151 H Calcium 8.5 L 03/21/16 03/21/16 03/21/16 19:18 15:26 12:22 BUN Estimated GFR POC Capillary Glucose 165 H 148 H 272 H Calcium Current Medications: Current meds reviewed in EMR. 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 with sepsis on presentation (elevated WBC, HR); lactate remained normal. s/p I&D 03/16 and 03/17; appreciate surgical care. On ertepenem for Group B Strep is currently identified; plan to change to PO levofloxacin on discharge. STEPS for wound vac/wound management; (2) Diabetes type 2, uncontrolled Qualifiers: Diabetes mellitus complication status: with skin complications Diabetes mellitus complication detail: with other skin complication Diabetes mellitus care home insulin use: without machine long goods helper use Qualifier Code: (E11.628) Type 2 diabetes mellitus with other skin complications Status: Acute Assessment/Plan: Patient appears to be Insulin deficient (type I with low C-peptide level) with insulin resistance (Type II) newly diagnosed, with DKA on admit. A1c 14.6, BG fairly well controlled on once daily Lantus insulin. Gave handouts from [employer], appreciate continuous vulcanizing machine operator and diabetes education (3) Anemia Status: Acute Assessment/Plan: Dilutional from IVF hydration. (4) DKA (diabetic ketoacidosis) Qualifiers: Diabetes mellitus type: type 2 Diabetes mellitus complication detail: without coma Qualifier Code: (E13.10) Other specified diabetes mellitus with ketoacidosis without coma Status: Acute Assessment/Plan: Present on admit but resolved for several days. (5) Hypokalemia Status: Acute Assessment/Plan: Due to DKA. Increase replacement and follow (6) Hypomagnesemia Status: Acute Assessment/Plan: Due to DKA, continue replacement and follow. (7) Sepsis Qualifiers: Sepsis type: Streptococcus group B Qualifier Code: (A40.1) Sepsis due to streptococcus, group B Status: Acute Assessment/Plan: Severe sepsis present on admit (SIRS with tachycardia and leukocytosis caused by GBS and associated with DKA) Resolved days ago. (8) Morbid obesity Qualifiers: Obesity type: due to excess calories Qualifier Code: (E66.01) Morbid ( severe) obesity due to excess calories Status: Chronic Assessment/Plan: Playing an important role in development of DM, and Loree's. Appreciate continuous vulcanizing machine operator input VTE Prophylaxis: now on enoxaparin Disposition: Anticapate discharge with wound vac, oral Levofloxacin, and STEPS f/u 03/23.
[2016-03-22] MEDS ORDERED: PUMP TUBING ONE (12:46)
[2016-03-22] MEDS: INSULIN GLARGINE (DOSE) 100 UNITS/ML UNIT SUB-Q SCH (12:56)
[2016-03-22] MEDS: INSULIN REGULAR HUMAN (DOSE) 100 UNITS/1 ML SUB-Q PRN (12:57)
[2016-03-22] MEDS: SODIUM CHLORIDE 0.9% 50 ML IV PRN (12:58)
[2016-03-22] MEDS: ERTAPENEM SODIUM 1 G in NS 0.9% (MINI-BAG PLUS) 50 ML IV SCH (12:59)
[2016-03-22] MEDS: OXYCODONE/ACETAMINOPHEN 5/325 MG TABLET PO PRN ×2 (14:08→20:02)
[2016-03-23 07:10] LABS: CALCIUM 8.8 mg/dL (8.6-10.3); MAGNESIUM 1.9 mg/dL (1.9-2.7)
[2016-03-23] MEDS: Magnesium Oxide 400 MG TABLET PO SCH (09:40)
[2016-03-23] MEDS: FLUCONAZOLE 100 MG TABLET PO SCH (09:41)
[2016-03-23] MEDS: POTASSIUM CHLORIDE 20 MEQ TAB.PRT.SR PO SCH (09:43)
[2016-03-23] MEDS: PANTOPRAZOLE 40 MG TABLET DR PO SCH (09:43)
[2016-03-23] MEDS: OXYCODONE/ACETAMINOPHEN 5/325 MG TABLET PO PRN (09:43)
[2016-03-23] MEDS: ENOXAPARIN SODIUM 40 MG/0.4 ML SYRINGE SUB-Q SCH (09:43)
[2016-03-23] MEDS ORDERED: LIDOCAINE 4% ONE (10:27)
--- NOTE | 2016-03-23 10:50 | PDOC43 ---
- Subjective I was present for the W[place] change at the bedside today. Wound still has some induration but no erythema/purulence. Areas that tracked appear to be closing/ healing. The majority of the wound is covered with excellent granulation tissue. OK to transition to PO Levaquin and d/c home with MWF [place] changes in [facility] clinic. If there are any concerns, please do not hesitate to contact me for the next week. Dr. Salas to return next week and will re-evaluate wound in the [facility] clinic. Ahmet Garcia MD General Surgeon - Objective Vital Signs Temperature 98.4 F 03/23/16 07:36 Pulse Rate 75 03/23/16 07:36 Respiratory Rate 16 03/23/16 07:36 Blood Pressure 117/65 03/23/16 07:36 O2 Saturation by Pulse Oximetry 96 03/23/16 07:36 Oxygen Delivery Method Room Air Oxygen Flow Rate 0 Laboratory 03/20/16 05:30 03/23/16 06:15 03/23/16 03/23/16 03/22/16 08:42 06:15 21:10 BUN 6 L Estimated GFR 129 H POC Capillary Glucose 123 H 124 H 03/22/16 03/22/16 16:55 12:24 BUN Estimated GFR POC Capillary Glucose 148 H 219 H Active Medication Orders Category Date Time Status Enoxaparin Sodium [Lovenox] Med 03/18/16 09:00 Active 40 mg SUB-Q Q24H Ertapenem Sodium [Invanz] 1 g Med 03/19/16 13:00 Active Ns 0.9% (Mini-Bag Plus) [Mini-Bag Plus (Ns)] 50 ml IV Q24H Fluconazole [Diflucan] Med 03/20/16 11:30 Active 200 mg PO DAILY Insulin Glargine (Dose) [Lantus (Dose)] Med 03/19/16 12:02 Active 60 units SUB-Q Q24H Insulin Regular Human (Dose) [Novolin R (Dose)] Med 03/19/16 12:02 Active See Protocol SUB-Q ACBEDTIME PRN Magnesium Oxide Med 03/18/16 10:30 Active 400 mg PO BID Oxycodone HCl/Acetaminophen [Percocet 5/325] Med 03/22/16 08:23 Active 1 tab PO Q3H PRN Pantoprazole Sodium [Protonix] Med 03/18/16 09:45 Active 40 mg PO Q24H Potassium Chloride [K-Dur] Med 03/19/16 10:30 Active 20 meq PO BID Sodium Chloride 0.9% 50 ml Med 03/18/16 19:24 Active IV PRN Sodium Chloride 0.9% Flush [Normal Saline 10ml Flush] Med 03/17/16 09:00 Active 10 ml IV Q8HR Intake and Output 03/21/16 03/22/16 03/23/16 23:59 23:59 23:59 Intake Total 1190 1570 540 Output Total 625 Balance 1190 945 540
--- NOTE | 2016-03-23 12:24 | DS ---
ADALID CARRION [id number] : 1980 DATE OF ADMISSION: March 16, 2016 DATE OF DISCHARGE: March 23, 2016 ADMIT DIAGNOSES: 1. Loree's gangrene. 2. Diabetes mellitus type 2 out of control. DISCHARGE DIAGNOSES: 1. 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 2. Sepsis secondary to Loree's gangrene, resolved. 3. Diabetes mellitus type 2, out of control. New diagnosis with low but not absent C-peptide. 4. Morbid obesity with a body mass index of 42.1. 5. Hypokalemia. 6. Anemia not clinically significant. 7. Diabetic ketoacidosis present on admission, resolved. 8. Hypomagnesemia secondary to diabetic ketoacidosis, resolved. CONSULTATIONS: Patient was admitted by Dr. Jun Salas and had hospitalist consultation by Dr. Vinson on March 17, 2016. PROCEDURES: Incision and debridement of skin and subcutaneous fat with exploration of the spermatic cord and scrotum on March 16, [address] Salas. HISTORY ON ADMISSION: Mr. Carrion is a 35-year-old who presented after a two week history of pain in the right groin. He had noted a small abscess which had drained himself. He had then been seen at urgent care in [place] where an incision and drainage had been done. Despite that he had increasing redness, swelling, and chills, and developed persistent abscess and necrotizing soft tissue. HOSPITAL COURSE: The patient was taken to the operating room by Dr. Salas for exploration and debridement then subsequently moved to the medical floor and treated with intravenous Primaxin and clindamycin. He was also found to have a new diagnosis of diabetes mellitus type 2 with mild diabetic ketoacidosis. He was treated with intravenous insulin and IV fluid hydration as well as electrolyte replacement. He had gradual improvement and healing of the wound and did not require further debridement. His blood sugar stabilized on once daily long-acting insulin injections. He did develop some erythema of the thighs consistent with yeast infection and Diflucan was added to his regimen. Antibiotic treatment was revised to ertapenem, but the only organism that grew from the wound cultures was group B strep agalactiae. He received approval for outpatient wound VAC management and on March 23, 2016 is stable for discharge. DISCHARGE EXAM: VITAL SIGNS: Temperature 98.4 degrees Fahrenheit, pulse 75, blood pressure 117/65, respiratory rate 16, oxygen saturation 96% on room air. Glucose this morning 123. GENERAL: Patient is alert and in good spirits. CHEST: Clear to auscultation. HEART: Regular. ABDOMEN: Soft and nontender. EXTREMITIES: No edema, good pulses. Wound VAC is in place. It will be changed and the wound examined by the surgeon prior to discharge. DISCHARGE PLAN: 1. Discharge to home. 2. Follow up at [facility] March 25, 2016 and thereafter for wound VAC changes. 3. Follow up with Lauren Kelly, nurse practitioner, March 25, 2016 at 9:30 a.m. 4. Follow up with Dr. Jun Salas through the [facility] clinic in approximately two weeks. DISCHARGE DIET: Diabetic diet. DISCHARGE ACTIVITY: As tolerated. May shower with wound VAC but no submerged bathing. DISCHARGE MEDICATIONS: 1. Levofloxacin 750 mg orally daily for ten days. 2. Diflucan 200 mg orally daily for seven days. 3. Insulin glargine 60 units subcutaneous each evening. 4. Oxycodone with acetaminophen 5/325 one tablet every three hours as needed for pain. Prescription for 30 tablets. cc: Dana Lugo M.D.
[2016-03-23] MEDS: INSULIN GLARGINE (DOSE) 100 UNITS/ML UNIT SUB-Q SCH (12:31)
[2016-03-23] MEDS: ERTAPENEM SODIUM 1 G in NS 0.9% (MINI-BAG PLUS) 50 ML IV SCH (12:31)
[2016-03-23] MEDS ORDERED: PUMP TUBING ONE (12:33)
[2016-03-23 13:32] VITALS: BP 132/89
== END 2016-03-23 16:30 | disposition home or self-care (01) | DRG 853 ==
LOC: ED 16:58 → SDC 21:07 → ICU 23:49 → MS 03-18 17:00
PROVIDERS: ADMIT Surgery; ATTEND Surgery
PROC: 0VB50ZZ Excision of Scrotum, Open Approach (ICD-10-PCS; principal; 2016-03-16)
PROC: 0VBF0ZZ Excision of Right Spermatic Cord, Open Approach (ICD-10-PCS; 2016-03-16)
DX: A40.1 Sepsis due to streptococcus, group B (principal); M72.6 Necrotizing fasciitis; E13.10 Other specified diabetes mellitus with ketoacidosis without coma; L02.215 Cutaneous abscess of perineum; B37.49 Other urogenital candidiasis; Z68.41 Body mass index [BMI] 40.0-44.9, adult; E66.01 Morbid (severe) obesity due to excess calories; G47.30 Sleep apnea, unspecified; N49.3 Fournier gangrene; D64.9 Anemia, unspecified; E87.6 Hypokalemia; E83.42 Hypomagnesemia